=== PATIENT | female | born 1945 | race Caucasian/White ===

== ENCOUNTER 2020-05-04 14:04 | Inpatient (IN) | payer MEDICARE, OTHER, SELFPAY ==
[2020-05-04] VITALS (8 sets, daily range): BP systolic 101–164; BP diastolic 50–130; PULSE 68–74; RESP 22–26; TEMP 36.2–37.3; O2SAT 85–96; BMI 33.3; BMI 34.2
--- NOTE | 2020-05-04 14:18 | ED.DCSUM_ITS ---
History of Present Illness Chief Complaint: General Illness Informant: Patient Narrative: 75-year-old female presenting with generalized weakness. She states is been going on for 6 days. She complains of chills, change in taste, difficulty ambulating. Her daughter states that she fell this week and she had to come help her up in the garage. Patient herself thinks she has a UTI. She does not have a cough or cold symptoms. She has had fevers for the last 2 days with a T- max of 101. Patient denies chest pain, palpitations. She states she has always has a cough and does not think it is changed. Patient states that she is always short of breath due to heart failure and likely undiagnosed COPD. Past Medical History - Allergies and Home Meds Allergies/Adverse Reactions: Allergies cephalexin [From Keflex] Allergy (Verified 05/04/20 15:29) Hives amoxicillin [From Augmentin] Adverse Reaction (Verified 05/04/20 15:29) Diarrhea clavulanic acid [From Augmentin] Adverse Reaction (Verified 05/04/20 15:29) Diarrhea sulfamethoxazole [From Bactrim] Adverse Reaction (Verified 05/04/20 15:29) MY KIDNEY TOLD ME THAT WAS HARD ON THE KIDNEYS trimethoprim [From Bactrim] Adverse Reaction (Verified 05/04/20 15:29) MY KIDNEY TOLD ME THAT WAS HARD ON THE KIDNEYS Prior records reviewed: Yes Past Medical History: - - Hypertension, diabetes, CHF Lives: Spouse/ Significant Other Smoking Status: Former smoker Alcohol: None Drugs: None Review of Systems General: Reports: Chills, Fever, Malaise. Denies: Subjective Eyes: Reports: -. Denies: Visual changes - bilaterally, Diplopia ENT: Reports: - - Change in taste., -. Denies: Bilateral ear pain, Left ear pain, Right ear pain, Rhinorrhea, Sore throat Cardiovascular: Denies: Chest pain, Palpitations Respiratory: Reports: Dyspnea, Cough, Dyspnea on exertion. Denies: Sputum Gastrointestinal: Reports: - - Decreased appetite. Denies: Abdominal pain, Nausea, Vomiting, Diarrhea, Melena, Hematochezia Genitourinary: Reports: Dysuria. Denies: Hematuria, Frequency Musculoskeletal: Denies: Back pain, Extremity Pain Skin: Denies: Rash, Wounds Neurological: Denies: Headache, Weakness, Numbness Physical Exam Vital Signs/Narrative: Vital Signs Temp Pulse Resp BP Pulse Ox 05/04/20 14:05 97.2 F L 70 24 H 101/55 L 96 Inital Vital Signs reviewed: Yes General: Well nourished, Well developed, No Acute Distress Head: Normocephalic, Atraumatic Eyes: Perrl, EOMI ENT: Moist mucous membranes, No rhinorrhea Cardiovascular: Regular rate, Regular rhythm, No murmurs Respiratory: No distress, CTA bilaterally, - - Right lower lobe crackles.. Negative for: Wheezing Abdomen: Soft, Nontender, Nondistended, Normal bowel sounds Extremities: Nontender, No edema Skin: Normal color, No rash Neurological: Alert, Oriented x3, Cranial nerves II-XII grossly intact, Normal Strength, Normal Sensation Psychological: Normal affect, Normal Mood Diagnostic/Tx/Re-eval - Rhythm Strip Rhythm Strip: Sinus Rhythm Rate: 68 - EKG Initial EKG Interpretation: Sinus Rhythm, No Acute Injury Pattern - Medical Decision Making 75-year-old female presenting with chills, fever, cough, shortness of breath. She states that her cough and shortness of breath have not significantly changed. Given her symptoms I did test her for Covid?19. Lab work shows that she is dehydrated with a decreased GFR. She does not have a leukocytosis. Lactic acid is 1.5. Troponins negative. D-dimer is elevated however due to renal function I would not be able to CTA her. Discussed with hospitalist and we will empirically treat her with Eliquis and that she has symptoms of Covid?19 and is more likely to have PE. Patient will get inpatient duplexes tomorrow. Her urinalysis is negative for infection which was her initial thought for source. EKG is sinus rhythm without signs of ischemia as interpreted by myself. Chest x-ray is read by the radiologist shows minimal increased markings in the right lung base. Given the abnormal breath sounds and increased markings I do interpret this as infiltrate. Patient did test positive for Covid?19. She will be given 6 mg of Decadron prior to going to the floor. Impression: 1. Dehydration 2. Covid?19 3. Hypoxia ED Disposition - Plan for ED Patient: Disposition: Acute Care [facility]
--- NOTE | 2020-05-04 14:41 | EKG12_ITS ---
Test Reason : Blood Pressure : / mmHG Vent. Rate : 068 BPM Atrial Rate : 068 BPM P-R Int : 182 ms QRS Dur : 088 ms QT Int : 412 ms P-R-T Axes : 059 017 057 degrees QTc Int : 438 ms Normal sinus rhythm Nonspecific ST abnormality Abnormal ECG Confirmed by CURLY LARA, PILAR ([id number]), make up editor KAYLA LIN ([id number]) on 05/12/2020 10:11:10 AM Referred By: LICHA Confirmed By:VESNA RAWLS MD
[2020-05-04 15:23] LABS: Absolute Lymphocyte Count 0.88 X10^3/uL (0.83-4.51); Absolute Neutrophil Count 2.8 X10^3/uL (2.0-7.7); Basophil# 0.01 X10^3/uL; Basophil% 0.2 % (0-1); Eosinophil# 0.01 X10^3/uL; Eosinophils% 0.2 % (0-5); Hematocrit 32.2 % (37-47); Hemoglobin 10.6 g/dL (12.0-15.0); Lymphocyte # 0.88 X10^3/ul (4.0); Lymphocyte % 20.7 % (19-41); Mean Corp Hgb Conc 32.9 g/dL (32-36); Mean Corpuscular Hgb 33.4 pg (27.0-32.0); Mean Corpuscular Volume 101.6 fL (81-99); Mean Platelet Vol. 10.3 fl (6.2-12.0); Monocyte# 0.52 X10^3/uL; Monocyte% 12.2 % (0-10); NRBC Flagged by Analyzer 0 % (0-5); Neutrophil # 2.81 X10^3/uL (2.7-7.7); Platelet Count 239 K/mm3 (150-450); RBC Distribution Width CV 14.1 % (11.6-14.6); RBC Distribution Width SD 52.2 fl (35.1-43.9); Red Blood Count 3.17 M/mm3 (4.2-5.4); White Blood Count 4.3 K/mm3 (4.4-11.0)
--- NOTE | 2020-05-04 15:37 | RAD_ITS ---
STUDY: X-RAY CHEST REASON FOR EXAM: Female, 75 years old. PT C/O INCREASED WEAKNESS, DECREASED APPETITE X1 WEEK TECHNIQUE: Single AP portable view of the chest. COMPARISON: None. FINDINGS: EKG electrodes are seen. Hyperinflation. Minimal increased markings at the right lung base. There is no demonstrated pleural abnormality. Normal size heart. Normal mediastinum and rafy. Normal visualized pulmonary arteries. There is atherosclerotic calcification of the aortic arch with tortuosity. Normal visualized thoracic spine. Normal visualized ribs, clavicles, and shoulders. There is no demonstrated abnormality of the visualized soft tissue structures of the upper abdomen. RAD/Chest 1 View (Portable) IMPRESSION: Minimal increased markings at the right lung base. Electronically Signed: Ayan Johnson, at 16:02 EST , Service support ,
[2020-05-04 15:45] LABS: ALB/GLOB Ratio 0.7 RATIO (0.9-2.4); AST(SGOT) 42 U/L (15-37); Alanine Aminotransfer ALT/SGPT 20 U/L (13-56); Albumin, Serum 2.8 g/dL (3.2-5.0); Alkaline Phosphatase 48 U/L (45-117); Anion Gap 7 (5-15); BUN 48 mg/dL (7-18); BUN/Creat Ratio 28.9 RATIO (10-20); Calcium,Total 8.5 mg/dL (8.5-10.1); Chloride 99 mmol/L (98-107); Creatinine, Serum 1.66 mg/dL (0.55-1.02); EST Glomerular Filtration Rate 32 mL/min (>60); Est Glom Filt Rate - Afr Amer 39 mL/min (>60); Estimated Creatinine Clearance 26.75 ml/min; Glucose 100 mg/dL (74-106); Potassium 3.9 mmol/L (3.5-5.1); Protein, Total 6.8 g/dL (6.4-8.2); Sodium Level 133 mmol/L (136-145)
[2020-05-04 15:51] LABS: Lactic Acid 1.5 mmol/L (0.4-1.9)
[2020-05-04 15:53] LABS: Procalcitonin 0.13 ng/mL (0.00-0.09)
--- NOTE | 2020-05-04 17:12 | PCM.HP.STD ---
Problem List (1) Acute respiratory failure with hypoxia Status: Acute (2) COVID-19 Status: Acute (3) CKD (chronic kidney disease), stage III Status: Suspected Qualifiers: Chronic kidney disease stage 3 subtype: unspecified whether 3a or 3b Qualified Code(s): N18.30 - Chronic kidney disease, stage 3 unspecified (4) HTN (hypertension) Status: Chronic Qualifiers: Hypertension type: essential hypertension Qualified Code(s): I10 - Essential (primary) hypertension (5) HLD (hyperlipidemia) Status: Chronic Qualifiers: Hyperlipidemia type: unspecified Qualified Code(s): E78.5 - Hyperlipidemia, unspecified (6) Diabetes mellitus, type II Status: Chronic Qualifiers: Diabetes mellitus intermediate frame tender insulin use: without fpc use Diabetes mellitus complication status: with other specified complication Qualified Code(s): E11.69 - Type 2 diabetes mellitus with other specified complication (7) CHF (congestive heart failure) Status: Chronic Qualifiers: Heart failure type: unspecified Heart failure chronicity: chronic Qualified Code(s): I50.9 - Heart failure, unspecified (8) Gout Status: Chronic Qualifiers: Gout site: unspecified site Gout etiology: unspecified cause Chronicity: unspecified Qualified Code(s): M10.9 - Gout, unspecified History of Present Illness Date of Admission: 05/04/20 Chief Complaint: N/V/D, Fever, chills, alteration to sense of taste, body aches, dyspnea, cough. The patient is a 75 y/o F w/ PMHx: HTN, HLD, Gout, Obesity, CHF Unclear type, CKD unclear stage (suspect CKD stage III), Chronic anemia (unclear type), Former Tobacco use with suspected underlying COPD per family report, Diabetes mellitus type II who presents to the [facility] ED on 05/04/20 with history of 6 days of progressively worsening fever, chills, nausea, emesis, diarrhea, body aches, dyspnea and cough noting severe progressive weakness and falls. She also notes a decreased/altered sense of taste and complete lack of appetite. She notes her has remained well. She does have her daughter and son who have visited but have remained asymptomatic. Work-up in the ED included T 97.2, heart rate 69, BP 131/57, respiratory rate 26, initially 95% on room air however with transition to the bedside commode patient did desaturate to 85% with improvement to 94% on 2 L nasal cannula, continue to have accessory muscle usage and evidence of dyspnea during evaluation, CBC with WC 4.3, hemoglobin 10.6, platelet 239 with no shift, D-dimer 2.50, CMP with sodium 133, BUN/creatinine 48/1.66, lactic acid 1.5, AST/ALT 42/20, alk phos 48, troponin 0 0.038, procalcitonin 0.13, urinalysis not severe appearing with specific gravity 1.015, COVID-19 testing positive with PCR, chest x-ray with minimal increased markings right lung base, EKG with sinus rhythm with no acute evidence of ischemia. Past Medical History Past Medical History (Chronic Problems): Chronic Problems HTN (hypertension) (Chronic) HLD (hyperlipidemia) (Chronic) Diabetes mellitus, type II (Chronic) CHF (congestive heart failure) (Chronic) Gout (Chronic) Allergies cephalexin [From Keflex] Allergy (Verified 05/04/20 15:29) Hives amoxicillin [From Augmentin] Adverse Reaction (Verified 05/04/20 15:29) Diarrhea clavulanic acid [From Augmentin] Adverse Reaction (Verified 05/04/20 15:29) Diarrhea sulfamethoxazole [From Bactrim] Adverse Reaction (Verified 05/04/20 15:29) MY KIDNEY TOLD ME THAT WAS HARD ON THE KIDNEYS trimethoprim [From Bactrim] Adverse Reaction (Verified 05/04/20 15:29) MY KIDNEY TOLD ME THAT WAS HARD ON THE KIDNEYS Home Medications: Ambulatory Orders Medication Instructions Recorded Allopurinol 100 mg PO BID 05/04/20 Aspirin [Aspirin, Baby] 81 mg PO DAILY@0800 05/04/20 Carvedilol [Coreg] 25 mg PO BID 05/04/20 Clonidine HCl 0.3 mg PO DAILY 05/04/20 Cranberry Extract [Cranberry] 425 mg PO DAILY 05/04/20 Ergocalciferol (Vitamin D2) 50,000 unit PO UD 05/04/20 [Vitamin D2] Furosemide [Lasix] 40 mg PO MOTUWETHFR 05/04/20 Glipizide 5 mg PO BID 05/04/20 Hydrochlorothiazide [Hctz] 25 mg PO DAILY 05/04/20 Isosorbide Mononitrate [Imdur] 30 mg PO BID 05/04/20 [place]-3 Fatty Acids/Fish Oil 2 ea PO BID 05/04/20 [[place] 3 1,000 mg Softgel] Polyethylene Glycol 3350 [Miralax] 17 gm PO DAILY 05/04/20 Simvastatin [Zocor] 20 mg PO DAILY 05/04/20 Valsartan [Diovan] 160 mg PO DAILY 05/04/20 Surgical History: - - Hysterectomy, right total knee replacement, surgery for skin cancer on her head. 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 Tobacco Use: Non-smoker Alcohol: None Drugs: None - *Family History Maternal History Items: Heart Disease - Mother with a history of heart disease, CHF, hypertension, hyperlipidemia, diabetes. Paternal History Items: Cancer - Father with history of tobacco use and concurrent lung cancer history., - - Patient notes her father had a history of significant alcoholism. Review of Systems Constitutional: Reports: Anorexia, Chills, Fever, Malaise, Weakness, Fatigue. Denies: Weight Change HEENT: Reports: - - Alteration to sense of taste.. Denies: Head Aches, Sinus Congestion, Sinus Drainage Cardiovascular: Denies: Chest Pain, Chest Pressure, Chest Tightness, Light Headedness, Palpitations Respiratory: Reports: Cough, Shortness of Breath, Shortness of breath at rest, Shortness of breath upon exertion. Denies: Sputum production, Wheezing Gastrointestinal: Reports: Diarrhea, Nausea, Vomiting. Denies: Abdominal Pain Genitourinary: Denies: Dysuria Musculoskeletal: Reports: Back Pain, Joint Pain, Muscle pain. Denies: Joint Tenderness Skin: Denies: Rash, Wounds Neurological: Denies: Numbness, Tingling, Focal weakness Psychiatric: Denies: Anxiety, Depression, Homicidal Ideations, Suicidal Ideations Hematologic/ Lymphatic: Reports: Anemia, Easy Bruising, Easy Bleeding VTE Information - Inpt Only VTE Present on Admission: No VTE Mechan Device Prophylaxis: SCD's VTE Pharm Prophylaxis ordered?: Yes Subjective: Seated upright in the ED bed, fatigued and ill-appearing, increased respiratory rate and some accessory muscle usage, evident distress. Objective: Physical Examination: General: awake, alert, oriented x 3 and cooperative, seated upright in the ED bed, fatigued and ill-appearing, increased respiratory rate and some accessory muscle usage, evident distress. Skin: normal color, turgor, no icterus, cyanosis. HEENT: AT/NC, EOMI, PERRLA, dry MM, no carotid bruits or JVD noted. Lungs: Diminished breath sounds, greater bases, increased respiratory rate and accessory muscle usage noted, evident distress, no obvious rales, rhonchi or wheezing but does also have conversational dyspnea. Heart: Regular rate and rhythm; no gallop, rub audible. Abdomen: soft, obese, NTTP, ND, hyperactive BS, no HSM. Extremities: no cyanosis or clubbing, minimal bilateral lower extremity nonpitting edema to the ankles. Neurological: patient awake, alert, oriented as noted, hard of hearing; cognitive function appears baseline intact despite acute presentation; pupils equally reactive to light and accomodation; cranial nerves II-XII grossly normal, moving all 4 extremities, no focal deficits, strength severely globally decreased secondary to acute presentation. Psychiatric: affect appears ill, fatigued, evident respiratory distress, no acute evidence of depressive or anxiety feelings. - Physical Exam Vitals/I&O's: Vital Signs Temp Pulse Resp BP Pulse Ox 97.2 F L 69 26 H 131/57 H 95 05/04/20 15:19 05/04/20 15:19 05/04/20 15:19 05/04/20 15:19 05/04/20 15:19 Oxygen Delivery Method Room Air Weight: 200 lb Body Mass Index (BMI) 33.3 Laboratory Results 05/04/20 14:55: COVID-19 (JAKE) Pending 05/04/20 15:14: WBC 4.3 L, RBC 3.17 L, Hgb 10.6 L, Hct 32.2 L, MCV 101.6 H, MCH 33.4 H, MCHC 32.9, RDW Std Deviation 52.2 H, RDW Coeff of Madalyn 14.1, Plt Count 239, MPV 10.3, Immature Gran % (Auto) 0.700, Neut % (Auto) 66.0, Lymph % (Auto) 20.7, [place] % (Auto) 12.2 H, Eos % (Auto) 0.2, Baso % (Auto) 0.2, Absolute Neuts (auto) 2.8, Absolute Lymphs (auto) 0.88, Nucleated RBC % 0 05/04/20 15:14: D-Dimer Quant (PE/DVT) 2.50 H* 05/04/20 15:14: Sodium 133 L, Potassium 3.9, Chloride 99, Carbon Dioxide 27.0, Anion Gap 7, BUN 48 H, Creatinine 1.66 H, Estim Creat Clear Calc 26.75, Est GFR (MDRD) Af Amer 39 L, Est GFR (MDRD) Non-Af 32 L, BUN/Creatinine Ratio 28.9 H, Glucose 100, Calcium 8.5, Total Bilirubin 0.50, AST 42 H, ALT 20, Alkaline Phosphatase 48, Troponin I 0.038, Total Protein 6.8, Albumin 2.8 L, Globulin 4.0, Albumin/Globulin Ratio 0.7 L 05/04/20 15:14: Lactic Acid 1.5 05/04/20 15:14: Procalcitonin 0.13 H Assessment/Plan All Active Problems Acute respiratory failure with hypoxia (Acute) COVID-19 (Acute) The patient is a 75 y/o F w/ PMHx: HTN, HLD, Gout, Obesity, CHF Unclear type, CKD unclear stage (suspect CKD stage III), Chronic anemia (unclear type), Former Tobacco use with suspected underlying COPD per family report, Diabetes mellitus type II who presents to the [facility] ED on 05/04/20 with history of 6 days of progressively worsening fever, chills, nausea, emesis, diarrhea, body aches, dyspnea and cough noting severe progressive weakness and falls. She also notes a decreased/altered sense of taste and complete lack of appetite. 1. Acute Hypoxic Respiratory Failure secondary to Acute Viral Syndrome, COVID-19: Will admit to the COVID unit, will maintain on oxygen with wean as tolerated to room air although do suspect patient likely to worsen and is amenable to BiPAP and high flow at this point with deferral of any intubation or CPR, PRN albuterol, HOB, IS parameters w/ pending sputum cultures and urine antigens, will obtain procalcitonin, CRP, CPK, Ferritin, LDH, trend labs per worsening status protocol Covid panel, request infectious disease consultation, will obtain type and screen, not candidate for remdesivir given renal disease likely, to new IV Decadron x10 doses, continue supportive care including q 2 hour turning including prone given no prone bed availability and judicious hydration, closely monitor for worsening status for ARDS and multiorgan failure. Given patient elevated D-dimer and renal disease will obtain duplex ultrasound of the bilateral lower extremities in AM. In the interim will maintain on therapeutic anticoagulation. 2. Leukopenia, suspect secondary to #1: Admission WBC 4.3, do suspect likely secondary to #1, continue to trend CBC. 3. Chronic CHF, unclear type, appears compensated: Given patient presentation very judiciously hydrating especially given Covid status and underlying CHF, continue aspirin, statin, Coreg, valsartan, Lasix therapy. Did discuss with patient that given presentation #1 she may require additional Lasix regimen. 4. Hypertension: Continue home regimen including Coreg, Lasix, hydrochlorothiazide, isosorbide, valsartan, PRN hydralazine. 5. Hyperlipidemia: Continue home statin regimen. 6. Chronic anemia, currently macrocytic: Admission hemoglobin 10.6, MCV 101.6, notes longstanding history of anemia, cannot give history as of what type, will trend CBC. 7. Chronic Kidney Disease suspect stage III: Admission BUN/Cr 48/1.66 with creatinine clearance currently 26.75 with unclear baseline but do suspect some component of mild dehydration given presentation with recent poor oral intake, likely suspect stage III, trend CMP. 8. Suspect underlying chronic COPD: We will continue to closely monitor, complicates #1 presentation, as needed albuterol if necessary via inhaler, may consider adding scheduled inhaler, encourage head of bed and I-S. 9. Former tobacco use: Encourage continued tobacco cessation. 10. Diabetes mellitus type II: Hold oral home regimen, ADA diet, accu checks w/ ISS, do expect blood sugar elevations given steroid usage as noted #1. 11. DVT prophylaxis: SCDs, Eliquis. 12. CODE status: Patient DERIC is her as primary and her son Tom Abbott as secondary and living will is currently in place. Discussed CODE status at length including difference between FULL code, DNR-CCA and DNR-CC status. Following discussions about the differences in these status, requested DNR-CCA, no intubation status. She is amenable to BIPAP and high flow if needed. Advanced Care Planning Face to Face Time: 16 minutes. Inpatient E&M: 90331 Init Hosp L3 Procedures: 61891 Advncd Care Plan 30 Min
[2020-05-04 17:16] LABS: Bacteria 0 SEEN /hpf (None Seen); Mucous, Urine 0 SEEN /hpf (<or=2+); Red Blood Cells-Urine 0 SEEN /hpf (0-5); Squamous Epithelial Cells - UA 0 SEEN /hpf (5-10); White Blood Cells 0 SEEN /hpf (0-5)
[2020-05-04 17:18] LABS: Color, Urine Yellow (Yellow); Glucose, Dipstick Normal (Normal); Ketone-Dipstick Negative (Negative); Leukocyte Esterase-Dipstick Negative /ul (Negative); Nitrite-Dipstick Negative (Negative); Occult Blood-Urine 10 /ul (Negative); Protein-Dipstick Negative (Negative); Specific Gravity, Urine 1.015 (1.002-1.030); Urine Bilirubin Dipstick Negative (Negative); Urine Clarity Clear (Clear); Urine Urobilinogen Normal (Normal)
--- NOTE | 2020-05-04 17:20 | NURSING ---
MS2 COVID HYPOXIA WHITE
[2020-05-04] MEDS: dexAMETHasone 10 MG/ML Vial 6 MG IV (17:30)
[2020-05-04] MEDS: 0.9% Normal Saline 1,000 ML 100 ML IV (20:43)
[2020-05-04 21:01] LABS: Ferritin 913 ng/mL (8-252); LDH 303 U/L (84-246); Magnesium 1.6 mg/dL (1.6-2.6)
[2020-05-04] MEDS: Carvedilol 25 MG Tablet PO (21:02)
[2020-05-04] MEDS: Isosorbide Mononitrate 30 MG Tablet PO (21:02)
[2020-05-04] MEDS: Atorvastatin Calcium 10 MG Tablet PO (21:02)
[2020-05-04] MEDS: APIXABAN 5 MG TABLET 10 MG PO (21:02)
[2020-05-04] MEDS: Allopurinol 100 MG Tablet PO (21:02)
--- NOTE | 2020-05-04 23:00 | PCS.PANDOC ---
PANDEMIC DOCUMENTATION INITIATED: Date: 05/04/20 Time: 1854
[2020-05-05] VITALS (15 sets, daily range): BP systolic 111–163; BP diastolic 57–82; PULSE 51–78; RESP 18–22; TEMP 36.6–37.1; O2SAT 9–98
[2020-05-05 03:16] LABS: Bedside Glucose 131 mg/dL (70-110)
[2020-05-05] MEDS: Insulin Lispro 100 UNIT/ML INSULN.PEN SC ×4 (06:17→20:17)
[2020-05-05 06:46] LABS: Absolute Lymphocyte Count 0.65 X10^3/uL (0.83-4.51); Absolute Neutrophil Count 1.3 X10^3/uL (2.0-7.7); Hematocrit 31.9 % (37-47); Hemoglobin 10.4 g/dL (12.0-15.0); Lymphocyte # 0.65 X10^3/ul (4.0); Lymphocyte % 31.7 % (19-41); Mean Corp Hgb Conc 32.6 g/dL (32-36); Mean Corpuscular Volume 101.3 fL (81-99); Mean Platelet Vol. 10.2 fl (6.2-12.0); Monocyte# 0.13 X10^3/uL; Monocyte% 6.3 % (0-10); NRBC Flagged by Analyzer 0 % (0-5); Neutrophil # 1.26 X10^3/uL (2.7-7.7); Neutrophil % 61.5 % (47-70); Platelet Count 259 K/mm3 (150-450); RBC Distribution Width SD 51.8 fl (35.1-43.9); Red Blood Count 3.15 M/mm3 (4.2-5.4); White Blood Count 2.1 K/mm3 (4.4-11.0)
[2020-05-05 06:57] LABS: D-Dimer Quantitative (DVT/PE) 2.45 FEU/ug/m (0.27-0.49)
[2020-05-05 07:15] LABS: ALB/GLOB Ratio 0.6 RATIO (0.9-2.4); AST(SGOT) 43 U/L (15-37); Alanine Aminotransfer ALT/SGPT 21 U/L (13-56); Albumin, Serum 2.6 g/dL (3.2-5.0); Alkaline Phosphatase 47 U/L (45-117); Anion Gap 9 (5-15); BUN 41 mg/dL (7-18); BUN/Creat Ratio 31.8 RATIO (10-20); Calcium,Total 8.7 mg/dL (8.5-10.1); Chloride 103 mmol/L (98-107); Creatinine, Serum 1.29 mg/dL (0.55-1.02); EST Glomerular Filtration Rate 43 mL/min (>60); Est Glom Filt Rate - Afr Amer 52 mL/min (>60); Estimated Creatinine Clearance 34.43 ml/min; Ferritin 946 ng/mL (8-252); Glucose 159 mg/dL (74-106); Potassium 3.9 mmol/L (3.5-5.1); Protein, Total 6.6 g/dL (6.4-8.2); Sodium Level 136 mmol/L (136-145)
[2020-05-05 07:25] LABS: Bedside Glucose 162 mg/dL (70-110)
[2020-05-05 07:45] LABS: Procalcitonin 0.14 ng/mL (0.00-0.09)
[2020-05-05] MEDS: Furosemide 40 MG Tablet PO (09:02)
[2020-05-05] MEDS: Carvedilol 25 MG Tablet PO ×2 (09:02→19:59)
[2020-05-05] MEDS: hydroCHLOROthiazide 25 MG Tablet PO (09:02)
[2020-05-05] MEDS: Allopurinol 100 MG Tablet PO ×2 (09:02→19:59)
[2020-05-05] MEDS: Isosorbide Mononitrate 30 MG Tablet PO ×2 (09:02→19:59)
[2020-05-05] MEDS: APIXABAN 5 MG TABLET 10 MG PO (09:02)
[2020-05-05] MEDS: Aspirin 81 MG TAB.CHEW PO (09:02)
[2020-05-05] MEDS: cloNIDine HCl 0.1 MG Tablet 0.3 MG PO (09:02)
[2020-05-05] MEDS: Losartan Potassium 50 MG Tablet PO (09:02)
[2020-05-05] MEDS: 0.9% Saline Lock 10 ML Syringe IV ×2 (09:03→19:58)
[2020-05-05] MEDS: dexAMETHasone 10 MG/ML Vial 6 MG IV (09:03)
--- NOTE | 2020-05-05 10:35 | PN_ITS ---
Patient Problems: Active and Suspected Problems Acute respiratory failure with hypoxia (Acute) COVID-19 (Acute) CKD (chronic kidney disease), stage III (Suspected) Subjective: Patient seen and examined. She was admitted with a complaint of fever, chills, she did taste as well as body aches, dyspnea and cough. Patient also had p rogressive weakness and falls. She tested positive for Covid and is being managed for acute hypoxic respiratory insufficiency due to COVID-19 infection. Patient has no complaints this morning think she is feeling better. She is on 2 L of oxygen. Review of systems otherwise negative. Blood pressure is a bit elevated this morning at 163/82 though she states she had just taken her blood pressure medication. Has otherwise remained hemodynamically stable. Vitals/I&O's: Vital Signs Temp Pulse Resp BP Pulse Ox 98.2 F 66 18 163/82 H 95 05/05/20 09:06 05/05/20 09:06 05/05/20 09:06 05/05/20 09:06 05/05/20 09:06 Oxygen Flow Rate (L/min) 2 Oxygen Delivery Method Nasal Cannula Weight: 200 lb 6.403 oz Body Mass Index (BMI) 34.2 Intake and Output for Last 24 Hours 05/03/20 05/04/20 05/05/20 23:59 23:59 23:59 Intake Total 948.33 / 948.33 Output Total 1400 / 1400 Balance -451.67 / -451.67 General: Alert, Oriented x3, Cooperative, No apparent distress HEENT: Atraumatic, PERRLA, EOMI, Normocephalic Oral: Dry Mucosa Neck: Supple, No JVD, Negative Carotid Bruits Lungs: - - diminished breath sounds bibasally, on 2L of oxygen by nasal canula Cardiovascular: Regular rate, Regular Rhythm, Normal S1, Normal S2, No murmurs Abdomen: Bowel Sounds Present, Soft, Non Tender, Non-Distended, No Hepato- splenomegaly Extremities: No edema, Capillary Refill Less than 3 Seconds Skin: No rashes, No breakdown Musculoskeletal: No Tenderness to Palpation of Joints or Extremities Lymphatic: No Cervical, Supraclavicular, or Inguinal Adenopathy Neurological: Cranial nerves II-XII grossly intact, Neuro grossly intact, Motor Exam 5/5 strength throughout Psych/Mental Status: Normal Affect, Appropriate, Alert and oriented to time, place, person, mood and affect Microbiology Past 72 Hours 05/04/20 17:10 Urine, Random Streptococcus pneumoniae Antigen (M - Final 05/04/20 17:10 Urine, Random Legionella Antigen - Final Laboratory Results 05/04/20 14:55: COVID-19 (JAKE) Detected 05/04/20 15:14: WBC 4.3 L, RBC 3.17 L, Hgb 10.6 L, Hct 32.2 L, MCV 101.6 H, MCH 33.4 H, MCHC 32.9, RDW Std Deviation 52.2 H, RDW Coeff of Madalyn 14.1, Plt Count 239, MPV 10.3, Immature Gran % (Auto) 0.700, Neut % (Auto) 66.0, Lymph % (Auto) 20.7, [place] % (Auto) 12.2 H, Eos % (Auto) 0.2, Baso % (Auto) 0.2, Absolute Neuts (auto) 2.8, Absolute Lymphs (auto) 0.88, Nucleated RBC % 0 05/04/20 15:14: D-Dimer Quant (PE/DVT) 2.50 H* 05/04/20 15:14: Sodium 133 L, Potassium 3.9, Chloride 99, Carbon Dioxide 27.0, Anion Gap 7, BUN 48 H, Creatinine 1.66 H, Estim Creat Clear Calc 26.75, Est GFR (MDRD) Af Amer 39 L, Est GFR (MDRD) Non-Af 32 L, BUN/Creatinine Ratio 28.9 H, Glucose 100, Calcium 8.5, Total Bilirubin 0.50, AST 42 H, ALT 20, Alkaline Phosphatase 48, Troponin I 0.038, Total Protein 6.8, Albumin 2.8 L, Globulin 4.0, Albumin/Globulin Ratio 0.7 L 05/04/20 15:14: Lactic Acid 1.5 05/04/20 15:14: Procalcitonin 0.13 H 05/04/20 15:14: Magnesium 1.6, Ferritin 913 H, Lactate Dehydrogenase 303 H, C- React Prot Ext Range 72.60 H 05/04/20 17:10: Urine Color Yellow, Urine Clarity Clear, Urine pH 5.0, Ur Specific [place] 1.015, Urine Protein Negative, Urine Glucose (UA) Normal, Urine Ketones Negative, Urine Occult Blood 10 H, Urine Nitrite Negative, Urine Bilirubin Negative, Urine Urobilinogen Normal, Ur Leukocyte Esterase Negative, Urine RBC 0 SEEN, Urine WBC 0 SEEN, Ur Squamous Epith Cells 0 SEEN, Urine Bact eria 0 SEEN, Urine Mucus 0 SEEN 05/04/20 21:00: Blood Type A POSITIVE, Antibody Screen NEGATIVE 05/04/20 21:01: POC Glucose 131 H 05/05/20 06:11: POC Glucose 162 H 05/05/20 06:35: WBC 2.1 L, RBC 3.15 L, Hgb 10.4 L, Hct 31.9 L, MCV 101.3 H, MCH 33.0 H, MCHC 32.6, RDW Std Deviation 51.8 H, RDW Coeff of Madalyn 14.0, Plt Count 259, MPV 10.2, Immature Gran % (Auto) 0.500, Neut % (Auto) 61.5, Lymph % (Auto) 31.7, [place] % (Auto) 6.3, Eos % (Auto) 0.0, Baso % (Auto) 0.0, Absolute Neuts (auto) 1.3 L, Absolute Lymphs (auto) 0.65 L, Nucleated RBC % 0 05/05/20 06:35: Sodium 136, Potassium 3.9, Chloride 103, Carbon Dioxide 24.0, Anion Gap 9, BUN 41 H, Creatinine 1.29 H, Estim Creat Clear Calc 34.43, Est GFR (MDRD) Af Amer 52 L, Est GFR (MDRD) Non-Af 43 L, BUN/Creatinine Ratio 31.8 H, Glucose 159 H, Calcium 8.7, Ferritin 946 H, Total Bilirubin 0.40, AST 43 H, ALT 21, Alkaline Phosphatase 47, C-React Prot Ext Range 93.20 H, Total Protein 6.6, Albumin 2.6 L, Globulin 4.0, Albumin/Globulin Ratio 0.6 L 05/05/20 06:35: D-Dimer Quant (PE/DVT) 2.45 H* 05/05/20 06:35: Procalcitonin 0.14 H Diagnostic Data Chest X-Ray 05/04/20 15:37 IMPRESSION: Minimal increased markings at the right lung base. Electronically Signed: Ayan Johnson, at 16:02 EST , Service support , Current Medications Acetaminophen (Acetaminophen 325 Mg Tablet) 650 mg PO Q6H PRN PRN PRN Reason: Pain Score 1-10/Temp > 100.7 F Al Hydroxide/Mg Hydroxide (Mag Hydrox/Al Hydrox/Simeth 30 Ml Udc) 30 ml PO Q6H PRN PRN PRN Reason: Gastric Burning Albuterol Sulfate (Albuterol Sulfate 8 Gm Inhaler (60 Puffs)) 4 - 8 puff INHALATION Q4H PRN PRN PRN Reason: Dyspnea, wheezing Allopurinol (Allopurinol 100 Mg Tablet) 100 mg PO BID [facility] Last Admin: 05/05/20 09:02 Dose: 100 mg Documented by: Apixaban (Apixaban 5 Mg Tablet) 10 mg PO BID [facility]; Taper Stop: 11/07/20 21:59 Last Admin: 05/05/20 09:02 Dose: 10 mg Documented by: Aspirin (Aspirin 81 Mg Tab.Chew) 81 mg PO DAILY [facility] Last Admin: 05/05/20 09:02 Dose: 81 mg Documented by: Atorvastatin Calcium (Atorvastatin Calcium 10 Mg Tablet) 10 mg PO QHS [facility] Last Admin: 05/04/20 21:02 Dose: 10 mg Documented by: Carvedilol (Carvedilol 25 Mg Tablet) 25 mg PO BID [facility] Last Admin: 05/05/20 09:02 Dose: 25 mg Documented by: Clonidine (Clonidine Hcl 0.1 Mg Tablet) 0.3 mg PO DAILY [facility] Last Admin: 05/05/20 09:02 Dose: 0.3 mg Documented by: Dexamethasone Sodium Phosphate (Dexamethasone 10 Mg/Ml Vial) 6 mg IV DAILY [facility] Stop: 05/14/20 10:01 Last Admin: 05/05/20 09:03 Dose: 6 mg Documented by: Dextrose (Dextrose 50%-Water 25 Gm/50 Ml Disp.Syrin) 0 gm IV X1 PRN; Protocol PRN Reason: Hypoglycemia Furosemide (Furosemide 40 Mg Tablet) 40 mg PO MOTUWETHFR [facility] Last Admin: 05/05/20 09:02 Dose: 40 mg Documented by: Glucagon (Glucagon 1 Mg/Ml Syringe) 1 mg IM .X1 PRN PRN Reason: Hypoglycemia Guaifenesin (Guaifenesin 10 Ml Udc (200mg/10ml)) 20 ml PO Q4H PRN PRN PRN Reason: COUGH Hydralazine HCl (Hydralazine 20 Mg/Ml Vial) 10 mg IV Q4H PRN PRN PRN Reason: SBP > 160 Hydrochlorothiazide (Hydrochlorothiazide 25 Mg Tablet) 25 mg PO DAILY [facility] Last Admin: 05/05/20 09:02 Dose: 25 mg Documented by: Insulin Human Lispro (Insulin Lispro 100 Unit/Ml Insuln.Pen) 0 unit SC [facility]; Protocol Last Admin: 05/05/20 06:17 Dose: 1 units Documented by: Isosorbide Mononitrate (Isosorbide Mononitrate 30 Mg Tablet) 30 mg PO BID [facility] Last Admin: 05/05/20 09:02 Dose: 30 mg Documented by: Losartan Potassium (Losartan Potassium 50 Mg Tablet) 50 mg PO DAILY [facility] Last Admin: 05/05/20 09:02 Dose: 50 mg Documented by: Melatonin (Melatonin 3 Mg Tablet) 3 mg PO QHS PRN PRN PRN Reason: INSOMNIA Morphine Sulfate (Morphine 2 Mg/Ml Syringe) 2 mg IV Q3H PRN PRN PRN Reason: Pain Score 6-10 Nitroglycerin (Nitroglycerin (Inpatient Use) 0.4 Mg Tab.Subl) 0.4 mg SUBLINGUAL Q5M PRN PRN Reason: CARDIAC/CHEST PAIN Ondansetron HCl (Ondansetron 4 Mg/2 Ml Vial) 4 mg IV Q8H PRN PRN PRN Reason: NAUSEA/VOMITING Oxycodone HCl (Oxycodone 5 Mg Tablet) 5 mg PO Q4H PRN PRN PRN Reason: Pain Score 4-5 Prochlorperazine Edisylate (Prochlorperazine 10 Mg/2 Ml Vial) 5 mg IV Q4H PRN PRN PRN Reason: Breakthrough nausea/vomiting Sodium Chloride (0.9% Saline Lock 10 Ml Syringe) 10 - 40 ml IV UD PRN PRN Reason: SALINE FLUSH Last Admin: 05/05/20 09:03 Dose: 10 ml Documented by: Throat Lozenges (Benzocaine/Menthol 1 Lozenge) 1 lozenge MUCOUS MEM Q2H PRN PRN PRN Reason: SORE THROAT STROKE Vital Signs/Narrative: Vital Signs Temp Pulse Resp BP Pulse Ox 05/05/20 09:06 98.2 F 66 18 163/82 H 95 05/05/20 08:31 66 Medical Necessity - Tobacco Use Smoking Status: Former smoker Tobacco Use: Cigarettes Assessment/Plan All Active Problems Acute respiratory failure with hypoxia (Acute) COVID-19 (Acute) #Acute hypoxic respiratory insufficiency due to COVID 19 infection * Currently on 2 L of oxygen. * Titrate oxygen to maintain saturation above 90%. * On dexamethasone. ID consulted. * No started on remdesivir on account of kidney impairment. * On Eliquis for anticoagulation no elevated D-dimer. * #COVID 19 infection * As above * # Hypertension * BP a bit elevated this mornign, with systolic in the 160s * on carvedilol, clonidine and HCTZ, as well as losartan. * #Hyperlipidemia * on statin * #Chronic HF * Not in exacerbation. On Lasix 40 mg daily. * #CKD stage 3 * Creatinine is 1.29. Will monitor * #Type 2 diabetes mellitus:glipizide on hold. ISS. Sera GREY. DVT prophylaxis; eliquis Inpatient E&M: 19960 Subs Hosp L2
[2020-05-05 12:06] LABS: Bedside Glucose 194 mg/dL (70-110)
[2020-05-05 12:35] LABS: BNP,B-Type NATRIURETIC PEPTIDE 140.5 pg/mL (0-100)
--- NOTE | 2020-05-05 12:40 | CASEMGMT ---
RN CM NOTE: Attempted to complete RN CM initial assessment. Pt out of room at this time. RN CM to attempt to complete at a later time. Sabrina BSN RN CM
--- NOTE | 2020-05-05 12:44 | CT_ITS ---
STUDY: CTA CHEST REASON FOR EXAM: Female, 75 years old. Fever, chills, body aches, sob, cough. COVID + RADIATION DOSAGE (If Supplied By Facility): CTDIvol = ( 14.64 ) mGy, DLP = ( 458.02 ) mGycm TECHNIQUE: The examination was performed with the intravenous administration of IV 100mL Isovue-370. Post-processing of the angiographic images was performed, with multiplanar reformation and 3D reconstruction. Individualized dose optimization techniques were used for this CT. COMPARISON: None. FINDINGS: Normal enhancement of the main pulmonary artery and right and left pulmonary arteries. Normal enhancement of the bilateral peripheral pulmonary arteries. There is no demonstrated pulmonary embolism. There is atherosclerotic calcification of the aortic arch and descending thoracic aorta with tortuosity. Mural thrombus is seen in the descending thoracic aorta. There is no demonstrated aortic dissection. Normal heart and pericardium. There are calcifications of the coronary arteries. There are visualized mediastinal lymph nodes, which are within normal size limits, and with normal morphology. Normal hilar regions. Normal visualized trachea and bronchi. The lungs are well expanded. Patchy areas of the groundglass appearance/infiltrate seen in the peripheral aspect of the both upper lobes. Similar appearing infiltrate seen in the lateral aspect of the right lower lobe. Findings are suggestive of Covid19 infection. Normal pleura. Normal chest wall structures. There are degenerative changes of thoracic spine. Normal visualized upper abdomen. CT/CTA Chest W/WO Contrast IMPRESSION: Patchy areas of groundglass appearance as described. Electronically Signed: Ayan Johnson, at 13:29 EST , Service support ,
--- NOTE | 2020-05-05 15:05 | CASEMGMT ---
RN [place] [employer] CM placed call to room for initial transition planning/care coordination assessment. DIOGO COLE introduced self and role at [facility]. Pt voices understanding and consents to assessment at this time. Pt is A/O at this time and answers all questions appropriately. Care providers, pharmacy, and demographics verified/updated at this time. PCP: dr Blake Johnson Specialists: Dr Lalito Daniel--supervisor plasma [facility] [place]. Saw Dr Alba (nephrology) in the past but pt states, She released me Preferred Pharmacy: [facility] retail Insurance: MCR, [employer] Prescription Benefit: Yes Living Will/HPOA: has both LW and Healthcare POA--she thinks it is either her or son, Tom, but is not sure LNOK: , Blake Living Arrangements: Lives w/her , Blake, in one-story home w/2 steps to enter w/handrails on one side. Independent w/ADL's. /pt share home mgmt tasks. They have separate bedrooms and are able to self isolate. They do share a bathroom and instructed to disinfect after using. 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 or daughter will take her home @ discharge. DME: has the following DME: Cane, walker, shower chair, BSC, grab bars, glucometer. No home O2. Pt states no need for further DME at this time. HHC/SNF: No history of either. may be interested in HHC and does not want to make that decision at this time, stating, I just can't think about that right now. DIOGO COLE told pt that this can be discussed again tomorrow and she states she prefers that. Pt wishes to return home and states has no concerns with going home at time of discharge. CM to follow for home oxygen needs and any further discharge planning/needs. Pt voices no further concerns/needs at this time. Advised pt to ask for CM if any further questions/concerns/needs arise. Voices understanding. PLAN: Home w/. May qualify for Home O2 @ discharge. Pt also may want HHC @ d/c DIOGO COLE to follow Sabrina LINARES RN, CM
--- NOTE | 2020-05-05 15:51 | CON.PCM_ITS ---
Problem List (1) COVID-19 Status: Acute Reason for Consult: covid Consulted by: Dr. Og History of Present Illness: The patient is a 75 year old F presented with sx starting 04/28 with diarrhea, cough, weakness, fatigue, loss of appetite. No change in taste/smell. Lives with who is getting tested. Came to ED with NOELLE, hypoxia, not feeling well. Given dex, eliquis. Feeling a little better today. Full ROS performed and neg except as noted above. - Medical History Past Medical History (Chronic Problems): Chronic Problems HTN (hypertension) (Chronic) HLD (hyperlipidemia) (Chronic) Diabetes mellitus, type II (Chronic) CHF (congestive heart failure) (Chronic) Gout (Chronic) Allergies/Adverse Reactions: Allergies cephalexin [From Keflex] Allergy (Verified 05/04/20 15:29) Hives amoxicillin [From Augmentin] Adverse Reaction (Verified 05/04/20 15:29) Diarrhea clavulanic acid [From Augmentin] Adverse Reaction (Verified 05/04/20 15:29) Diarrhea sulfamethoxazole [From Bactrim] Adverse Reaction (Verified 05/04/20 15:29) MY KIDNEY TOLD ME THAT WAS HARD ON THE KIDNEYS trimethoprim [From Bactrim] Adverse Reaction (Verified 05/04/20 15:29) MY KIDNEY TOLD ME THAT WAS HARD ON THE KIDNEYS Home Medications: Ambulatory Orders Medication Instructions Recorded Allopurinol 100 mg PO BID 05/04/20 Aspirin [Aspirin, Baby] 81 mg PO DAILY@0800 05/04/20 Carvedilol [Coreg] 25 mg PO BID 05/04/20 Clonidine HCl 0.3 mg PO DAILY 05/04/20 Cranberry Extract [Cranberry] 425 mg PO DAILY 05/04/20 Ergocalciferol (Vitamin D2) 50,000 unit PO UD 05/04/20 [Vitamin D2] Furosemide [Lasix] 40 mg PO MOTUWETHFR 05/04/20 Glipizide 5 mg PO BID 05/04/20 Hydrochlorothiazide [Hctz] 25 mg PO DAILY 05/04/20 Isosorbide Mononitrate [Imdur] 30 mg PO BID 05/04/20 [place]-3 Fatty Acids/Fish Oil 2 ea PO BID 05/04/20 [[place] 3 1,000 mg Softgel] Polyethylene Glycol 3350 [Miralax] 17 gm PO DAILY 05/04/20 Simvastatin [Zocor] 20 mg PO DAILY 05/04/20 Valsartan [Diovan] 160 mg PO DAILY 05/04/20 - Social History SMOKING STATUS:: Former smoker Vital Signs Temp Pulse Resp BP Pulse Ox 97.8 F 70 18 111/68 94 05/05/20 14:00 05/05/20 14:00 05/05/20 14:00 05/05/20 14:00 05/05/20 14:42 Oxygen Flow Rate (L/min) 2 Oxygen Delivery Method Nasal Cannula Weight: 90.9 kg Body Mass Index (BMI) 34.2 Microbiology Past 72 Hours 05/04/20 14:55 Respiratory Panel (PCR) - Final Mucosa - Nasopharyngeal 05/04/20 17:10 Streptococcus pneumoniae Antigen (M - Final Urine, Random 05/04/20 17:10 Legionella Antigen - Final Urine, Random Laboratory Tests Past 24 Hrs 05/04/20 05/04/20 05/04/20 14:55 15:14 15:14 WBC RBC Hgb Hct MCV MCH MCHC RDW Std Deviation RDW Coeff of Madalyn Plt Count MPV Immature Gran % (Auto) Neut % (Auto) Lymph % (Auto) [place] % (Auto) Eos % (Auto) Baso % (Auto) Absolute Neuts (auto) Absolute Lymphs (auto) Nucleated RBC % D-Dimer Quant (PE/DVT) 2.50 H* Sodium Potassium Chloride Carbon Dioxide Anion Gap BUN Creatinine Estim Creat Clear Calc Est GFR (MDRD) Af Amer Est GFR (MDRD) Non-Af BUN/Creatinine Ratio Glucose Lactic Acid 1.5 Calcium Magnesium Ferritin Total Bilirubin AST ALT Alkaline Phosphatase Lactate Dehydrogenase C-React Prot Ext Range B-Natriuretic Peptide Total Protein Albumin Globulin Albumin/Globulin Ratio Procalcitonin Urine Color Urine Clarity Urine pH Ur Specific [place] Urine Protein Urine Glucose (UA) Urine Ketones Urine Occult Blood Urine Nitrite Urine Bilirubin Urine Urobilinogen Ur Leukocyte Esterase Urine RBC Urine WBC Ur Squamous Epith Cells Urine Bacteria Urine Mucus COVID-19 (JAKE) Detected Blood Type Antibody Screen 05/04/20 05/04/20 05/04/20 15:14 15:14 17:10 WBC RBC Hgb Hct MCV MCH MCHC RDW Std Deviation RDW Coeff of Madalyn Plt Count MPV Immature Gran % (Auto) Neut % (Auto) Lymph % (Auto) [place] % (Auto) Eos % (Auto) Baso % (Auto) Absolute Neuts (auto) Absolute Lymphs (auto) Nucleated RBC % D-Dimer Quant (PE/DVT) Sodium Potassium Chloride Carbon Dioxide Anion Gap BUN Creatinine Estim Creat Clear Calc Est GFR (MDRD) Af Amer Est GFR (MDRD) Non-Af BUN/Creatinine Ratio Glucose Lactic Acid Calcium Magnesium 1.6 Ferritin 913 H Total Bilirubin AST ALT Alkaline Phosphatase Lactate Dehydrogenase 303 H C-React Prot Ext Range 72.60 H B-Natriuretic Peptide Total Protein Albumin Globulin Albumin/Globulin Ratio Procalcitonin 0.13 H Urine Color Yellow Urine Clarity Clear Urine pH 5.0 Ur Specific [place] 1.015 Urine Protein Negative Urine Glucose (UA) Normal Urine Ketones Negative Urine Occult Blood 10 H Urine Nitrite Negative Urine Bilirubin Negative Urine Urobilinogen Normal Ur Leukocyte Esterase Negative Urine RBC 0 SEEN Urine WBC 0 SEEN Ur Squamous Epith Cells 0 SEEN Urine Bacteria 0 SEEN Urine Mucus 0 SEEN COVID-19 (JAKE) Blood Type Antibody Screen 05/04/20 05/05/20 05/05/20 21:00 06:35 06:35 WBC 2.1 L RBC 3.15 L Hgb 10.4 L Hct 31.9 L MCV 101.3 H MCH 33.0 H MCHC 32.6 RDW Std Deviation 51.8 H RDW Coeff of Madalyn 14.0 Plt Count 259 MPV 10.2 Immature Gran % (Auto) 0.500 Neut % (Auto) 61.5 Lymph % (Auto) 31.7 [place] % (Auto) 6.3 Eos % (Auto) 0.0 Baso % (Auto) 0.0 Absolute Neuts (auto) 1.3 L Absolute Lymphs (auto) 0.65 L Nucleated RBC % 0 D-Dimer Quant (PE/DVT) Sodium 136 Potassium 3.9 Chloride 103 Carbon Dioxide 24.0 Anion Gap 9 BUN 41 H Creatinine 1.29 H Estim Creat Clear Calc 34.43 Est GFR (MDRD) Af Amer 52 L Est GFR (MDRD) Non-Af 43 L BUN/Creatinine Ratio 31.8 H Glucose 159 H Lactic Acid Calcium 8.7 Magnesium Ferritin 946 H Total Bilirubin 0.40 AST 43 H ALT 21 Alkaline Phosphatase 47 Lactate Dehydrogenase C-React Prot Ext Range 93.20 H B-Natriuretic Peptide Total Protein 6.6 Albumin 2.6 L Globulin 4.0 Albumin/Globulin Ratio 0.6 L Procalcitonin Urine Color Urine Clarity Urine pH Ur Specific [place] Urine Protein Urine Glucose (UA) Urine Ketones Urine Occult Blood Urine Nitrite Urine Bilirubin Urine Urobilinogen Ur Leukocyte Esterase Urine RBC Urine WBC Ur Squamous Epith Cells Urine Bacteria Urine Mucus COVID-19 (JAKE) Blood Type A POSITIVE Antibody Screen NEGATIVE 05/05/20 05/05/20 05/05/20 06:35 06:35 06:35 WBC RBC Hgb Hct MCV MCH MCHC RDW Std Deviation RDW Coeff of Madalyn Plt Count MPV Immature Gran % (Auto) Neut % (Auto) Lymph % (Auto) [place] % (Auto) Eos % (Auto) Baso % (Auto) Absolute Neuts (auto) Absolute Lymphs (auto) Nucleated RBC % D-Dimer Quant (PE/DVT) 2.45 H* Sodium Potassium Chloride Carbon Dioxide Anion Gap BUN Creatinine Estim Creat Clear Calc Est GFR (MDRD) Af Amer Est GFR (MDRD) Non-Af BUN/Creatinine Ratio Glucose Lactic Acid Calcium Magnesium Ferritin Total Bilirubin AST ALT Alkaline Phosphatase Lactate Dehydrogenase C-React Prot Ext Range B-Natriuretic Peptide 140.5 H Total Protein Albumin Globulin Albumin/Globulin Ratio Procalcitonin 0.14 H Urine Color Urine Clarity Urine pH Ur Specific [place] Urine Protein Urine Glucose (UA) Urine Ketones Urine Occult Blood Urine Nitrite Urine Bilirubin Urine Urobilinogen Ur Leukocyte Esterase Urine RBC Urine WBC Ur Squamous Epith Cells Urine Bacteria Urine Mucus COVID-19 (JAKE) Blood Type Antibody Screen - Other Studies Radiology: [] reviewed Other Studies: [] Route of nutrition/ use of supplements: [] Nutritional Intake: [] IV Site: [] Garcia Catheter: [] - Physical Exam General: Alert, Oriented x3, Cooperative, No apparent distress HEENT: Atraumatic, PERRLA, EOMI Neck: Supple, No Nodes Lungs: Diminished Cardiovascular: Regular rate, Regular Rhythm Abdomen: Soft, Non Tender, Non-Distended Extremities: No edema Skin: No rashes IV Site: Peripheral, without redness Musculoskeletal: No Tenderness to Palpation of Joints or Extremities Neurological: Cranial nerves II-XII grossly intact - Assessment/Plan Antibiotics: [] Assessment/Plan: [] Active and Suspected Problems Acute respiratory failure with hypoxia (Acute) COVID-19 (Acute) CKD (chronic kidney disease), stage III (Suspected) covid with hypoxia and NOELLE - on dex, eliquis. Will start remdesivir. Sx started 04/28. GFR better today. PCR covid (+). in quarantine, getting tested, asymptomatic. Spoke with her son. D-dimer was 2.4. Will follow, thank you
[2020-05-05 16:06] LABS: Bedside Glucose 240 mg/dL (70-110)
[2020-05-05] MEDS: APIXABAN 2.5 MG TABLET PO (19:59)
[2020-05-05] MEDS: Atorvastatin Calcium 10 MG Tablet PO (19:59)
[2020-05-05 22:35] LABS: Bedside Glucose 272 mg/dL (70-110)
[2020-05-06] VITALS (10 sets, daily range): BP systolic 131–165; BP diastolic 58–85; PULSE 57–76; RESP 18; TEMP 36.5–36.8; O2SAT 92–96
[2020-05-06] MEDS: Insulin Lispro 100 UNIT/ML INSULN.PEN SC ×4 (06:08→20:19)
[2020-05-06 06:12] LABS: Hematocrit 31.4 % (37-47); Hemoglobin 10.1 g/dL (12.0-15.0); Mean Corp Hgb Conc 32.2 g/dL (32-36); Mean Corpuscular Hgb 32.4 pg (27.0-32.0); Mean Corpuscular Volume 100.6 fL (81-99); Mean Platelet Vol. 10.5 fl (6.2-12.0); Platelet Count 251 K/mm3 (150-450); Red Blood Count 3.12 M/mm3 (4.2-5.4); White Blood Count 5.3 K/mm3 (4.4-11.0)
[2020-05-06 06:26] LABS: Bedside Glucose 212 mg/dL (70-110)
[2020-05-06 06:49] LABS: ALB/GLOB Ratio 0.6 RATIO (0.9-2.4); AST(SGOT) 37 U/L (15-37); Alanine Aminotransfer ALT/SGPT 20 U/L (13-56); Albumin, Serum 2.5 g/dL (3.2-5.0); Alkaline Phosphatase 44 U/L (45-117); Anion Gap 9 (5-15); BUN 52 mg/dL (7-18); BUN/Creat Ratio 36.9 RATIO (10-20); Calcium,Total 8.7 mg/dL (8.5-10.1); Chloride 101 mmol/L (98-107); Creatinine, Serum 1.41 mg/dL (0.55-1.02); EST Glomerular Filtration Rate 39 mL/min (>60); Est Glom Filt Rate - Afr Amer 47 mL/min (>60); Globulin 3.9 g/dL (2.2-4.2); Glucose 212 mg/dL (74-106); Potassium 3.7 mmol/L (3.5-5.1); Protein, Total 6.4 g/dL (6.4-8.2); Sodium Level 135 mmol/L (136-145)
[2020-05-06] MEDS: cloNIDine HCl 0.1 MG Tablet 0.3 MG PO (10:17)
[2020-05-06] MEDS: APIXABAN 2.5 MG TABLET PO ×2 (10:17→20:18)
[2020-05-06] MEDS: dexAMETHasone 4 MG Tablet 6 MG PO (10:17)
[2020-05-06] MEDS: Aspirin 81 MG TAB.CHEW PO (10:17)
[2020-05-06] MEDS: Losartan Potassium 50 MG Tablet PO (10:18)
[2020-05-06] MEDS: Carvedilol 25 MG Tablet PO ×2 (10:18→20:18)
[2020-05-06] MEDS: Furosemide 40 MG Tablet PO (10:18)
[2020-05-06] MEDS: hydroCHLOROthiazide 25 MG Tablet PO (10:18)
[2020-05-06] MEDS: Allopurinol 100 MG Tablet PO ×2 (10:18→20:19)
[2020-05-06] MEDS: Isosorbide Mononitrate 30 MG Tablet PO ×2 (10:18→20:18)
[2020-05-06] MEDS: Menthol/Lanolin/Calamine/Znox 113 GM Tube 1 APPLIC TOPICAL ×2 (10:19→20:18)
[2020-05-06] MEDS: 0.9% Saline Lock 10 ML Syringe IV (10:20)
--- NOTE | 2020-05-06 11:03 | PN.ID_ITS ---
Patient Problems: Active and Suspected Problems Acute respiratory failure with hypoxia (Acute) COVID-19 (Acute) CKD (chronic kidney disease), stage III (Suspected) Subjective: Feeling much better, no fever, breathing improved, appetite returned. - Physical Exam Vitals/I&O's: Vital Signs Temp Pulse Resp BP Pulse Ox 97.9 F 69 18 149/58 H 94 05/06/20 10:00 05/06/20 10:00 05/06/20 10:00 05/06/20 10:00 05/06/20 08:06 Oxygen Flow Rate (L/min) 2 Oxygen Delivery Method Nasal Cannula Weight: 90.3 kg Body Mass Index (BMI) 34.2 Intake and Output for Last 24 Hours 05/04/20 05/05/20 05/06/20 23:59 23:59 23:59 Intake Total 1598.33 / 1598.33 Output Total 1400 / 1650 850 / 850 Balance 198.33 / -51.67 -850 / -850 General: Alert, Cooperative, No apparent distress Lungs: Clear to auscultation, Diminished Cardiovascular: Regular rate, Regular Rhythm Abdomen: Soft, Non Tender, Non-Distended Skin: No rashes Microbiology Past 72 Hours 05/04/20 14:55 Mucosa - Nasopharyngeal Respiratory Panel (PCR) - Final 05/04/20 17:10 Urine, Random Streptococcus pneumoniae Antigen (M - Final 05/04/20 17:10 Urine, Random Legionella Antigen - Final Laboratory Results 05/05/20 06:35: B-Natriuretic Peptide 140.5 H 05/05/20 11:04: POC Glucose 194 H 05/05/20 15:48: POC Glucose 240 H 05/05/20 20:15: POC Glucose 272 H 05/06/20 05:26: WBC 5.3, RBC 3.12 L, Hgb 10.1 L, Hct 31.4 L, MCV 100.6 H, MCH 32.4 H, MCHC 32.2, RDW Std Deviation 51.0 H, RDW Coeff of Madalyn 14.0, Plt Count 251, MPV 10.5 05/06/20 05:26: Sodium 135 L, Potassium 3.7, Chloride 101, Carbon Dioxide 25.0, Anion Gap 9, BUN 52 H, Creatinine 1.41 H, Estim Creat Clear Calc 31.50, Est GFR (MDRD) Af Amer 47 L, Est GFR (MDRD) Non-Af 39 L, BUN/Creatinine Ratio 36.9 H, Glucose 212 H, Calcium 8.7, Total Bilirubin 0.40, AST 37, ALT 20, Alkaline Phosphatase 44 L, Total Protein 6.4, Albumin 2.5 L, Globulin 3.9, Albumin /Globulin Ratio 0.6 L 05/06/20 06:07: POC Glucose 212 H Current Medications Acetaminophen (Acetaminophen 325 Mg Tablet) 650 mg PO Q6H PRN PRN PRN Reason: Pain Score 1-10/Temp > 100.7 F Al Hydroxide/Mg Hydroxide (Mag Hydrox/Al Hydrox/Simeth 30 Ml Udc) 30 ml PO Q6H PRN PRN PRN Reason: Gastric Burning Albuterol Sulfate (Albuterol Sulfate 8 Gm Inhaler (60 Puffs)) 4 - 8 puff INHALATION Q4H PRN PRN PRN Reason: Dyspnea, wheezing Allopurinol (Allopurinol 100 Mg Tablet) 100 mg PO BID [facility] Last Admin: 05/06/20 10:18 Dose: 100 mg Documented by: Apixaban (Apixaban 2.5 Mg Tablet) 2.5 mg PO BID [facility] Last Admin: 05/06/20 10:17 Dose: 2.5 mg Documented by: Aspirin (Aspirin 81 Mg Tab.Chew) 81 mg PO DAILY [facility] Last Admin: 05/06/20 10:17 Dose: 81 mg Documented by: Atorvastatin Calcium (Atorvastatin Calcium 10 Mg Tablet) 10 mg PO QHS [facility] Last Admin: 05/05/20 19:59 Dose: 10 mg Documented by: Calamine/Phenol (Menthol/Lanolin/Calamine/Znox 113 Gm Tube) 1 applic TOPICAL BID [facility]; Protocol Last Admin: 05/06/20 10:19 Dose: 1 applic Documented by: Carvedilol (Carvedilol 25 Mg Tablet) 25 mg PO BID [facility] Last Admin: 05/06/20 10:18 Dose: 25 mg Documented by: Clonidine (Clonidine Hcl 0.1 Mg Tablet) 0.3 mg PO DAILY [facility] Last Admin: 05/06/20 10:17 Dose: 0.3 mg Documented by: Dexamethasone (Dexamethasone 4 Mg Tablet) 6 mg PO DAILY [facility] Stop: 05/13/20 10:01 Last Admin: 05/06/20 10:17 Dose: 6 mg Documented by: Dextrose (Dextrose 50%-Water 25 Gm/50 Ml Disp.Syrin) 0 gm IV X1 PRN; Protocol PRN Reason: Hypoglycemia Furosemide (Furosemide 40 Mg Tablet) 40 mg PO MOTUWETHFR [facility] Last Admin: 05/06/20 10:18 Dose: 40 mg Documented by: Glucagon (Glucagon 1 Mg/Ml Syringe) 1 mg IM .X1 PRN PRN Reason: Hypoglycemia Guaifenesin (Guaifenesin 10 Ml Udc (200mg/10ml)) 20 ml PO Q4H PRN PRN PRN Reason: COUGH Hydralazine HCl (Hydralazine 20 Mg/Ml Vial) 10 mg IV Q4H PRN PRN PRN Reason: SBP > 160 Hydrochlorothiazide (Hydrochlorothiazide 25 Mg Tablet) 25 mg PO DAILY [facility] Last Admin: 05/06/20 10:18 Dose: 25 mg Documented by: Remdesivir 100 mg/ Sodium (Chloride) 250 mls @ 125 mls/hr IV DAILY [facility]; Protocol Stop: 05/09/20 11:59 Last Admin: 05/06/20 10:20 Dose: 125 mls/hr Documented by: Insulin Human Lispro (Insulin Lispro 100 Unit/Ml Insuln.Pen) 0 unit SC ACHS [facility]; Protocol Last Admin: 05/06/20 06:08 Dose: 2 units Documented by: Isosorbide Mononitrate (Isosorbide Mononitrate 30 Mg Tablet) 30 mg PO BID [facility] Last Admin: 05/06/20 10:18 Dose: 30 mg Documented by: Losartan Potassium (Losartan Potassium 50 Mg Tablet) 50 mg PO DAILY [facility] Last Admin: 05/06/20 10:18 Dose: 50 mg Documented by: Melatonin (Melatonin 3 Mg Tablet) 3 mg PO QHS PRN PRN PRN Reason: INSOMNIA Morphine Sulfate (Morphine 2 Mg/Ml Syringe) 2 mg IV Q3H PRN PRN PRN Reason: Pain Score 6-10 Nitroglycerin (Nitroglycerin (Inpatient Use) 0.4 Mg Tab.Subl) 0.4 mg SUBLINGUAL Q5M PRN PRN Reason: CARDIAC/CHEST PAIN Ondansetron HCl (Ondansetron 4 Mg/2 Ml Vial) 4 mg IV Q8H PRN PRN PRN Reason: NAUSEA/VOMITING Oxycodone HCl (Oxycodone 5 Mg Tablet) 5 mg PO Q4H PRN PRN PRN Reason: Pain Score 4-5 Prochlorperazine Edisylate (Prochlorperazine 10 Mg/2 Ml Vial) 5 mg IV Q4H PRN PRN PRN Reason: Breakthrough nausea/vomiting Sodium Chloride (0.9% Saline Lock 10 Ml Syringe) 10 - 40 ml IV UD PRN PRN Reason: SALINE FLUSH Last Admin: 05/06/20 10:20 Dose: 10 ml Documented by: Throat Lozenges (Benzocaine/Menthol 1 Lozenge) 1 lozenge MUCOUS MEM Q2H PRN PRN PRN Reason: SORE THROAT Medical Necessity - Tobacco Use Smoking Status: Former smoker Tobacco Use: Cigarettes Route of nutrition/ use of supplements: [] Nutritional Intake: [] IV Site: [] Garcia Catheter: [] - Assessment/Plan Antibiotics: [] Assessment/Plan: [] Active and Suspected Problems Acute respiratory failure with hypoxia (Acute) COVID-19 (Acute) CKD (chronic kidney disease), stage III (Suspected) covid with hypoxia and NOELLE - on dex, eliquis. On remdesivir. Sx started 04/28. PCR covid (+). in quarantine, tested neg, asymptomatic. D-dimer was 2.4. Feeling much better. Plan will be for discharge home to complete 10 total days of dex and 2 more weeks of low dose eliquis. Quarantine apart from her for 20 days from start of symptoms. Will follow
[2020-05-06 11:56] LABS: Bedside Glucose 258 mg/dL (70-110)
--- NOTE | 2020-05-06 12:53 | PCM.PN.HOSP ---
Patient Problems: Active and Suspected Problems Acute respiratory failure with hypoxia (Acute) COVID-19 (Acute) CKD (chronic kidney disease), stage III (Suspected) Subjective: Patient seen and examined. She feels much better today. She feels her shortness of breath abdomen is improved markedly and she has a much better appetite. She is on dexamethasone and remdesivir. Review of symptoms otherwise negative. I did turn patient down to 1 L at time I was reviewing her and her saturation was 95% on room air. Vitals/I&O's: Vital Signs Temp Pulse Resp BP Pulse Ox 97.9 F 69 18 149/58 H 94 05/06/20 10:00 05/06/20 10:00 05/06/20 10:00 05/06/20 10:00 05/06/20 10:00 Oxygen Flow Rate (L/min) 2 Oxygen Delivery Method Nasal Cannula Weight: 199 lb 1.239 oz Body Mass Index (BMI) 34.2 Intake and Output for Last 24 Hours 05/04/20 05/05/20 05/06/20 23:59 23:59 23:59 Intake Total 1598.33 / 1598.33 250 / 250 Output Total 1400 / 1650 850 / 850 Balance 198.33 / -51.67 -600 / -600 General: Alert, Oriented x3, Cooperative HEENT: Atraumatic, PERRLA, EOMI, Normocephalic Neck: Supple, No JVD, Negative Carotid Bruits Lungs: Clear to auscultation, Normal air movement, Wheezes - on 1L of oxygen Cardiovascular: Regular rate, No murmurs Abdomen: Bowel Sounds Present, Soft, Non Tender Extremities: No clubbing, No cyanosis, No edema, Capillary Refill Less than 3 Seconds Skin: No rashes, No breakdown Musculoskeletal: No Tenderness to Palpation of Joints or Extremities Neurological: Cranial nerves II-XII grossly intact Psych/Mental Status: Normal Affect, Appropriate, Alert and oriented to time, place, person, mood and affect Microbiology Past 72 Hours 05/04/20 14:55 Mucosa - Nasopharyngeal Respiratory Panel (PCR) - Final 05/04/20 17:10 Urine, Random Streptococcus pneumoniae Antigen (M - Final 05/04/20 17:10 Urine, Random Legionella Antigen - Final Laboratory Results 05/05/20 15:48: POC Glucose 240 H 05/05/20 20:15: POC Glucose 272 H 12/17/20 05:26: WBC 5.3, RBC 3.12 L, Hgb 10.1 L, Hct 31.4 L, MCV 100.6 H, MCH 32.4 H, MCHC 32.2, RDW Std Deviation 51.0 H, RDW Coeff of Madalyn 14.0, Plt Count 251, MPV 10.5 05/06/20 05:26: Sodium 135 L, Potassium 3.7, Chloride 101, Carbon Dioxide 25.0, Anion Gap 9, BUN 52 H, Creatinine 1.41 H, Estim Creat Clear Calc 31.50, Est GFR (MDRD) Af Amer 47 L, Est GFR (MDRD) Non-Af 39 L, BUN/Creatinine Ratio 36.9 H, Glucose 212 H, Calcium 8.7, Total Bilirubin 0.40, AST 37, ALT 20, Alkaline Phosphatase 44 L, Total Protein 6.4, Albumin 2.5 L, Globulin 3.9, Albumin/Globulin Ratio 0.6 L 05/06/20 06:07: POC Glucose 212 H 05/06/20 11:32: POC Glucose 258 H Current Medications Acetaminophen (Acetaminophen 325 Mg Tablet) 650 mg PO Q6H PRN PRN PRN Reason: Pain Score 1-10/Temp > 100.7 F Al Hydroxide/Mg Hydroxide (Mag Hydrox/Al Hydrox/Simeth 30 Ml Udc) 30 ml PO Q6H PRN PRN PRN Reason: Gastric Burning Albuterol Sulfate (Albuterol Sulfate 8 Gm Inhaler (60 Puffs)) 4 - 8 puff INHALATION Q4H PRN PRN PRN Reason: Dyspnea, wheezing Allopurinol (Allopurinol 100 Mg Tablet) 100 mg PO BID [facility] Last Admin: 05/06/20 10:18 Dose: 100 mg Documented by: Apixaban (Apixaban 2.5 Mg Tablet) 2.5 mg PO BID [facility] Last Admin: 05/06/20 10:17 Dose: 2.5 mg Documented by: Aspirin (Aspirin 81 Mg Tab.Chew) 81 mg PO DAILY [facility] Last Admin: 05/06/20 10:17 Dose: 81 mg Documented by: Atorvastatin Calcium (Atorvastatin Calcium 10 Mg Tablet) 10 mg PO QHS [facility] Last Admin: 05/05/20 19:59 Dose: 10 mg Documented by: Calamine/Phenol (Menthol/Lanolin/Calamine/Znox 113 Gm Tube) 1 applic TOPICAL BID [facility]; Protocol Last Admin: 05/06/20 10:19 Dose: 1 applic Documented by: Carvedilol (Carvedilol 25 Mg Tablet) 25 mg PO BID [facility] Last Admin: 05/06/20 10:18 Dose: 25 mg Documented by: Clonidine (Clonidine Hcl 0.1 Mg Tablet) 0.3 mg PO DAILY [facility] Last Admin: 05/06/20 10:17 Dose: 0.3 mg Documented by: Dexamethasone (Dexamethasone 4 Mg Tablet) 6 mg PO DAILY [facility] Stop: 05/13/20 10:01 Last Admin: 05/06/20 10:17 Dose: 6 mg Documented by: Dextrose (Dextrose 50%-Water 25 Gm/50 Ml Disp.Syrin) 0 gm IV X1 PRN; Protocol PRN Reason: Hypoglycemia Furosemide (Furosemide 40 Mg Tablet) 40 mg PO MOTUWETHFR [facility] Last Admin: 05/06/20 10:18 Dose: 40 mg Documented by: Glucagon (Glucagon 1 Mg/Ml Syringe) 1 mg IM .X1 PRN PRN Reason: Hypoglycemia Guaifenesin (Guaifenesin 10 Ml Udc (200mg/10ml)) 20 ml PO Q4H PRN PRN PRN Reason: COUGH Hydralazine HCl (Hydralazine 20 Mg/Ml Vial) 10 mg IV Q4H PRN PRN PRN Reason: SBP > 160 Hydrochlorothiazide (Hydrochlorothiazide 25 Mg Tablet) 25 mg PO DAILY [facility] Last Admin: 05/06/20 10:18 Dose: 25 mg Documented by: Remdesivir 100 mg/ Sodium (Chloride) 250 mls @ 125 mls/hr IV DAILY [facility]; Protocol Stop: 05/09/20 11:59 Last Infusion: 05/06/20 12:20 Dose: Infused Documented by: Insulin Human Lispro (Insulin Lispro 100 Unit/Ml Insuln.Pen) 0 unit SC ACHS [facility]; Protocol Last Admin: 05/06/20 12:33 Dose: 3 units Documented by: Isosorbide Mononitrate (Isosorbide Mononitrate 30 Mg Tablet) 30 mg PO BID [facility] Last Admin: 05/06/20 10:18 Dose: 30 mg Documented by: Losartan Potassium (Losartan Potassium 50 Mg Tablet) 50 mg PO DAILY [facility] Last Admin: 05/06/20 10:18 Dose: 50 mg Documented by: Melatonin (Melatonin 3 Mg Tablet) 3 mg PO QHS PRN PRN PRN Reason: INSOMNIA Morphine Sulfate (Morphine 2 Mg/Ml Syringe) 2 mg IV Q3H PRN PRN PRN Reason: Pain Score 6-10 Nitroglycerin (Nitroglycerin (Inpatient Use) 0.4 Mg Tab.Subl) 0.4 mg SUBLINGUAL Q5M PRN PRN Reason: CARDIAC/CHEST PAIN Ondansetron HCl (Ondansetron 4 Mg/2 Ml Vial) 4 mg IV Q8H PRN PRN PRN Reason: NAUSEA/VOMITING Oxycodone HCl (Oxycodone 5 Mg Tablet) 5 mg PO Q4H PRN PRN PRN Reason: Pain Score 4-5 Prochlorperazine Edisylate (Prochlorperazine 10 Mg/2 Ml Vial) 5 mg IV Q4H PRN PRN PRN Reason: Breakthrough nausea/vomiting Sodium Chloride (0.9% Saline Lock 10 Ml Syringe) 10 - 40 ml IV UD PRN PRN Reason: SALINE FLUSH Last Admin: 05/06/20 10:20 Dose: 10 ml Documented by: Throat Lozenges (Benzocaine/Menthol 1 Lozenge) 1 lozenge MUCOUS MEM Q2H PRN PRN PRN Reason: SORE THROAT STROKE Vital Signs/Narrative: Vital Signs Temp Pulse Resp BP Pulse Ox 05/06/20 10:00 97.9 F 69 18 149/58 H 94 05/06/20 09:58 57 L Medical Necessity - Tobacco Use Smoking Status: Former smoker Tobacco Use: Cigarettes Assessment/Plan All Active Problems Acute respiratory failure with hypoxia (Acute) COVID-19 (Acute) #Acute hypoxic respiratory insufficiency due to COVID 19 infection Currently on 1 L of oxygen. Feels much better Titrate oxygen to maintain saturation above 90%. on dexamethasone. Started on IV remdesivir yesterday after kidney function improved CTA of the chest done yesterday was negative for PE. now on low dose eliquis o/a of elevated D dimer #COVID 19 infection As above # Hypertension on carvedilol, clonidine and HCTZ, as well as losartan. #Hyperlipidemia on statin #Chronic HF Not in exacerbation. On Lasix 40 mg daily. #CKD stage 3 Creatinine is 1.41. Will monitor #Type 2 diabetes mellitus:glipizide on hold. ISS. [place] GREY. DVT prophylaxis; eliqu Inpatient E&M: 62689 Subs Hosp L2
[2020-05-06 17:10] LABS: Bedside Glucose 275 mg/dL (70-110)
[2020-05-06] MEDS: MELATONIN 3 MG TABLET PO (20:18)
[2020-05-06] MEDS: Atorvastatin Calcium 10 MG Tablet PO (20:18)
[2020-05-06 21:46] LABS: Bedside Glucose 330 mg/dL (70-110)
[2020-05-07] VITALS (16 sets, daily range): BP systolic 108–144; BP diastolic 56–84; PULSE 53–70; RESP 18–20; TEMP 36.3–36.6; O2SAT 83–95
[2020-05-07] MEDS: Insulin Lispro 100 UNIT/ML INSULN.PEN SC ×4 (06:17→21:35)
[2020-05-07 06:30] LABS: Bedside Glucose 237 mg/dL (70-110)
[2020-05-07 07:12] LABS: Hematocrit 30.9 % (37-47); Hemoglobin 9.9 g/dL (12.0-15.0); Mean Corpuscular Hgb 32.4 pg (27.0-32.0); Mean Platelet Vol. 10.1 fl (6.2-12.0); Platelet Count 237 K/mm3 (150-450); Red Blood Count 3.06 M/mm3 (4.2-5.4)
[2020-05-07 07:52] LABS: ALB/GLOB Ratio 0.8 RATIO (0.9-2.4); AST(SGOT) 36 U/L (15-37); Alanine Aminotransfer ALT/SGPT 22 U/L (13-56); Albumin, Serum 2.6 g/dL (3.2-5.0); Alkaline Phosphatase 45 U/L (45-117); Anion Gap 9 (5-15); BUN 57 mg/dL (7-18); BUN/Creat Ratio 43.2 RATIO (10-20); Calcium,Total 8.7 mg/dL (8.5-10.1); Chloride 102 mmol/L (98-107); Creatinine, Serum 1.32 mg/dL (0.55-1.02); EST Glomerular Filtration Rate 42 mL/min (>60); Est Glom Filt Rate - Afr Amer 51 mL/min (>60); Estimated Creatinine Clearance 33.65 ml/min; Globulin 3.1 g/dL (2.2-4.2); Glucose 206 mg/dL (74-106); Potassium 3.9 mmol/L (3.5-5.1); Protein, Total 5.7 g/dL (6.4-8.2); Sodium Level 138 mmol/L (136-145)
[2020-05-07] MEDS: cloNIDine HCl 0.1 MG Tablet 0.3 MG PO (08:51)
[2020-05-07] MEDS: hydroCHLOROthiazide 25 MG Tablet PO (08:51)
[2020-05-07] MEDS: Losartan Potassium 50 MG Tablet PO (08:51)
[2020-05-07] MEDS: dexAMETHasone 4 MG Tablet 6 MG PO (08:52)
[2020-05-07] MEDS: Furosemide 40 MG Tablet PO (08:52)
[2020-05-07] MEDS: Isosorbide Mononitrate 30 MG Tablet PO ×2 (08:53→21:37)
[2020-05-07] MEDS: Allopurinol 100 MG Tablet PO ×2 (08:53→21:37)
[2020-05-07] MEDS: Carvedilol 25 MG Tablet PO ×2 (08:54→21:37)
[2020-05-07] MEDS: Aspirin 81 MG TAB.CHEW PO (08:54)
[2020-05-07] MEDS: APIXABAN 2.5 MG TABLET PO ×2 (08:54→21:37)
[2020-05-07] MEDS: Menthol/Lanolin/Calamine/Znox 113 GM Tube 1 APPLIC TOPICAL ×2 (10:42→21:38)
[2020-05-07] MEDS: 0.9% Saline Lock 10 ML Syringe IV (10:43)
--- NOTE | 2020-05-07 10:45 | PCM.PN.HOSP ---
Patient Problems: Active and Suspected Problems Acute respiratory failure with hypoxia (Acute) COVID-19 (Acute) CKD (chronic kidney disease), stage III (Suspected) Subjective: Patient seen and examined. She is feeling much better today, and has no complaints. She says it takes her a shorter time for her shortness sof breath to get better after she exerts herself. Review of systems otherwise negative. Vitals/I&O's: Vital Signs Temp Pulse Resp BP Pulse Ox 97.5 F L 66 18 131/64 H 95 05/07/20 08:46 05/07/20 08:46 05/07/20 08:46 05/07/20 08:46 05/07/20 08:46 Oxygen Flow Rate (L/min) 2 Oxygen Delivery Method Room Air Weight: 199 lb Body Mass Index (BMI) 34.2 Intake and Output for Last 24 Hours 05/05/20 05/06/20 05/07/20 23:59 23:59 23:59 Intake Total 1598.33 / 1598.33 250 / 250 Output Total 1400 / 1650 1125 / 1125 500 / 500 Balance 198.33 / -51.67 -875 / -875 -500 / -500 General: Alert, Oriented x3, Cooperative HEENT: Atraumatic, PERRLA, EOMI, Normocephalic Neck: Supple, No JVD, Negative Carotid Bruits Lungs: Clear to auscultation, Normal air movement, Wheezes - on 2L of oxygen Cardiovascular: Regular rate, No murmurs Abdomen: Bowel Sounds Present, Soft, Non Tender Extremities: No clubbing, No cyanosis, No edema, Capillary Refill Less than 3 Seconds Skin: No rashes, No breakdown Musculoskeletal: No Tenderness to Palpation of Joints or Extremities Neurological: Cranial nerves II-XII grossly intact Psych/Mental Status: Normal Affect, Appropriate, Alert and oriented to time, place, person, mood and affect Microbiology Past 72 Hours 05/04/20 14:55 Mucosa - Nasopharyngeal Respiratory Panel (PCR) - Final 05/04/20 17:10 Urine, Random Streptococcus pneumoniae Antigen (M - Final 05/04/20 17:10 Urine, Random Legionella Antigen - Final Laboratory Results 05/06/20 11:32: POC Glucose 258 H 05/06/20 16:59: POC Glucose 275 H 05/06/20 20:17: POC Glucose 330 H 05/07/20 06:08: WBC 6.0, RBC 3.06 L, Hgb 9.9 L, Hct 30.9 L, MCV 101.0 H, MCH 32.4 H, MCHC 32.0, RDW Std Deviation 52.0 H, RDW Coeff of Madalyn 14.0, Plt Count 237, MPV 10.1 05/07/20 06:08: Sodium 138, Potassium 3.9, Chloride 102, Carbon Dioxide 27.0, Anion Gap 9, BUN 57 H, Creatinine 1.32 H, Estim Creat Clear Calc 33.65, Est GFR (MDRD) Af Amer 51 L, Est GFR (MDRD) Non-Af 42 L, BUN/Creatinine Ratio 43.2 H, Glucose 206 H, Calcium 8.7, Total Bilirubin 0.30, AST 36, ALT 22, Alkaline Phosphatase 45, Total Protein 5.7 L, Albumin 2.6 L, Globulin 3.1, Albumin/Globulin Ratio 0.8 L 05/07/20 06:16: POC Glucose 237 H Current Medications Acetaminophen (Acetaminophen 325 Mg Tablet) 650 mg PO Q6H PRN PRN PRN Reason: Pain Score 1-10/Temp > 100.7 F Al Hydroxide/Mg Hydroxide (Mag Hydrox/Al Hydrox/Simeth 30 Ml Udc) 30 ml PO Q6H PRN PRN PRN Reason: Gastric Burning Albuterol Sulfate (Albuterol Sulfate 8 Gm Inhaler (60 Puffs)) 4 - 8 puff INHALATION Q4H PRN PRN PRN Reason: Dyspnea, wheezing Allopurinol (Allopurinol 100 Mg Tablet) 100 mg PO BID [facility] Last Admin: 05/07/20 08:53 Dose: 100 mg Documented by: Apixaban (Apixaban 2.5 Mg Tablet) 2.5 mg PO BID [facility] Last Admin: 05/07/20 08:54 Dose: 2.5 mg Documented by: Aspirin (Aspirin 81 Mg Tab.Chew) 81 mg PO DAILY [facility] Last Admin: 05/07/20 08:54 Dose: 81 mg Documented by: Atorvastatin Calcium (Atorvastatin Calcium 10 Mg Tablet) 10 mg PO QHS [facility] Last Admin: 05/06/20 20:18 Dose: 10 mg Documented by: Calamine/Phenol (Menthol/Lanolin/Calamine/Znox 113 Gm Tube) 1 applic TOPICAL BID [facility]; Protocol Last Admin: 05/06/20 20:18 Dose: 1 applic Documented by: Carvedilol (Carvedilol 25 Mg Tablet) 25 mg PO BID [facility] Last Admin: 05/07/20 08:54 Dose: 25 mg Documented by: Clonidine (Clonidine Hcl 0.1 Mg Tablet) 0.3 mg PO DAILY [facility] Last Admin: 05/07/20 08:51 Dose: 0.3 mg Documented by: Dexamethasone (Dexamethasone 4 Mg Tablet) 6 mg PO DAILY [facility] Stop: 05/13/20 10:01 Last Admin: 05/07/20 08:52 Dose: 6 mg Documented by: Dextrose (Dextrose 50%-Water 25 Gm/50 Ml Disp.Syrin) 0 gm IV X1 PRN; Protocol PRN Reason: Hypoglycemia Furosemide (Furosemide 40 Mg Tablet) 40 mg PO MOTUWETHFR [facility] Last Admin: 05/07/20 08:52 Dose: 40 mg Documented by: Glucagon (Glucagon 1 Mg/Ml Syringe) 1 mg IM .X1 PRN PRN Reason: Hypoglycemia Guaifenesin (Guaifenesin 10 Ml Udc (200mg/10ml)) 20 ml PO Q4H PRN PRN PRN Reason: COUGH Hydralazine HCl (Hydralazine 20 Mg/Ml Vial) 10 mg IV Q4H PRN PRN PRN Reason: SBP > 160 Hydrochlorothiazide (Hydrochlorothiazide 25 Mg Tablet) 25 mg PO DAILY [facility] Last Admin: 05/07/20 08:51 Dose: 25 mg Documented by: Remdesivir 100 mg/ Sodium (Chloride) 250 mls @ 125 mls/hr IV DAILY [facility]; Protocol Stop: 05/09/20 11:59 Last Infusion: 05/06/20 12:20 Dose: Infused Documented by: Insulin Human Lispro (Insulin Lispro 100 Unit/Ml Insuln.Pen) 0 unit SC ACHS [facility]; Protocol Last Admin: 05/07/20 06:17 Dose: 3 units Documented by: Isosorbide Mononitrate (Isosorbide Mononitrate 30 Mg Tablet) 30 mg PO BID [facility] Last Admin: 05/07/20 08:53 Dose: 30 mg Documented by: Losartan Potassium (Losartan Potassium 50 Mg Tablet) 50 mg PO DAILY [facility] Last Admin: 05/07/20 08:51 Dose: 50 mg Documented by: Melatonin (Melatonin 3 Mg Tablet) 3 mg PO QHS PRN PRN PRN Reason: INSOMNIA Last Admin: 05/06/20 20:18 Dose: 3 mg Documented by: Morphine Sulfate (Morphine 2 Mg/Ml Syringe) 2 mg IV Q3H PRN PRN PRN Reason: Pain Score 6-10 Nitroglycerin (Nitroglycerin (Inpatient Use) 0.4 Mg Tab.Subl) 0.4 mg SUBLINGUAL Q5M PRN PRN Reason: CARDIAC/CHEST PAIN Ondansetron HCl (Ondansetron 4 Mg/2 Ml Vial) 4 mg IV Q8H PRN PRN PRN Reason: NAUSEA/VOMITING Oxycodone HCl (Oxycodone 5 Mg Tablet) 5 mg PO Q4H PRN PRN PRN Reason: Pain Score 4-5 Prochlorperazine Edisylate (Prochlorperazine 10 Mg/2 Ml Vial) 5 mg IV Q4H PRN PRN PRN Reason: Breakthrough nausea/vomiting Sodium Chloride (0.9% Saline Lock 10 Ml Syringe) 10 - 40 ml IV UD PRN PRN Reason: SALINE FLUSH Last Admin: 05/06/20 10:20 Dose: 10 ml Documented by: Throat Lozenges (Benzocaine/Menthol 1 Lozenge) 1 lozenge MUCOUS MEM Q2H PRN PRN PRN Reason: SORE THROAT STROKE Vital Signs/Narrative: Vital Signs Temp Pulse Resp BP Pulse Ox 05/07/20 08:46 97.5 F L 66 18 131/64 H 95 05/07/20 07:21 61 05/07/20 07:10 95 Medical Necessity - Tobacco Use Smoking Status: Former smoker Tobacco Use: Cigarettes Assessment/Plan All Active Problems Acute respiratory failure with hypoxia (Acute) COVID-19 (Acute) #Acute hypoxic respiratory insufficiency due to COVID 19 infection Currently on 2 L of oxygen. Feels much better Titrate oxygen to maintain saturation above 90%. on dexamethasone and remdesivir now on low dose eliquis o/a of elevated D dimer #COVID 19 infection As above # Hypertension on carvedilol, clonidine and HCTZ, as well as losartan. #Hyperlipidemia on statin #Chronic HF Not in exacerbation. On Lasix 40 mg daily. #CKD stage 3 Creatinine is 1.32 today. Will monitor #Type 2 diabetes mellitus:glipizide on hold. ISS. Accuc[place] ACHS. DVT prophylaxis; eliquis Disposition: for likely discharge over the weekend. Inpatient E&M: 45232 Subs Hosp L2
--- NOTE | 2020-05-07 12:14 | CASEMGMT ---
RN KELSEY Note: attempted x 2 to contact patient via phone. She is not answering. Asked nurse to have phone by her bedside. DC PLAN: home. CM would like to speak with pt re: oxygen choices and home health care. Polo LINARES RN ACM
[2020-05-07 15:20] LABS: Bedside Glucose 286 mg/dL (70-110)
--- NOTE | 2020-05-07 15:58 | PCM.PN.ID ---
Patient Problems: Active and Suspected Problems Acute respiratory failure with hypoxia (Acute) COVID-19 (Acute) CKD (chronic kidney disease), stage III (Suspected) Subjective: Feeling better, breathing improved, no n/v/d. - Physical Exam Vitals/I&O's: Vital Signs Temp Pulse Resp BP Pulse Ox 97.7 F L 64 20 H 108/56 L 92 05/07/20 14:25 05/07/20 15:47 05/07/20 14:25 05/07/20 14:25 05/07/20 14:25 Oxygen Flow Rate (L/min) 2 Oxygen Delivery Method Nasal Cannula Weight: 90.265 kg Body Mass Index (BMI) 34.2 Intake and Output for Last 24 Hours 05/05/20 05/06/20 05/07/20 23:59 23:59 23:59 Intake Total 1598.33 / 1598.33 250 / 250 250 / 250 Output Total 1400 / 1650 1125 / 1125 900 / 900 Balance 198.33 / -51.67 -875 / -875 -650 / -650 General: Alert, Cooperative, No apparent distress Lungs: Clear to auscultation, Diminished Cardiovascular: Regular rate, Regular Rhythm Abdomen: Soft, Non Tender, Non-Distended Skin: No rashes Microbiology Past 72 Hours 05/04/20 14:55 Mucosa - Nasopharyngeal Respiratory Panel (PCR) - Final 05/04/20 17:10 Urine, Random Streptococcus pneumoniae Antigen (M - Final 05/04/20 17:10 Urine, Random Legionella Antigen - Final Laboratory Results 05/06/20 16:59: POC Glucose 275 H 05/06/20 20:17: POC Glucose 330 H 05/07/20 06:08: WBC 6.0, RBC 3.06 L, Hgb 9.9 L, Hct 30.9 L, MCV 101.0 H, MCH 32.4 H, MCHC 32.0, RDW Std Deviation 52.0 H, RDW Coeff of Madalyn 14.0, Plt Count 237, MPV 10.1 05/07/20 06:08: Sodium 138, Potassium 3.9, Chloride 102, Carbon Dioxide 27.0, Anion Gap 9, BUN 57 H, Creatinine 1.32 H, Estim Creat Clear Calc 33.65, Est GFR (MDRD) Af Amer 51 L, Est GFR (MDRD) Non-Af 42 L, BUN/Creatinine Ratio 43.2 H, Glucose 206 H, Calcium 8.7, Total Bilirubin 0.30, AST 36, ALT 22, Alkaline Phosphatase 45, Total Protein 5.7 L, Albumin 2.6 L, Globulin 3.1, Albumin/Globulin Ratio 0.8 L 05/07/20 06:16: POC Glucose 237 H 05/07/20 12:02: POC Glucose 286 H Current Medications Acetaminophen (Acetaminophen 325 Mg Tablet) 650 mg PO Q6H PRN PRN PRN Reason: Pain Score 1-10/Temp > 100.7 F Al Hydroxide/Mg Hydroxide (Mag Hydrox/Al Hydrox/Simeth 30 Ml Udc) 30 ml PO Q6H PRN PRN PRN Reason: Gastric Burning Albuterol Sulfate (Albuterol Sulfate 8 Gm Inhaler (60 Puffs)) 4 - 8 puff INHALATION Q4H PRN PRN PRN Reason: Dyspnea, wheezing Allopurinol (Allopurinol 100 Mg Tablet) 100 mg PO BID [facility] Last Admin: 05/07/20 08:53 Dose: 100 mg Documented by: Apixaban (Apixaban 2.5 Mg Tablet) 2.5 mg PO BID [facility] Last Admin: 05/07/20 08:54 Dose: 2.5 mg Documented by: Aspirin (Aspirin 81 Mg Tab.Chew) 81 mg PO DAILY [facility] Last Admin: 05/07/20 08:54 Dose: 81 mg Documented by: Atorvastatin Calcium (Atorvastatin Calcium 10 Mg Tablet) 10 mg PO QHS [facility] Last Admin: 05/06/20 20:18 Dose: 10 mg Documented by: Calamine/Phenol (Menthol/Lanolin/Calamine/Znox 113 Gm Tube) 1 applic TOPICAL BID [facility]; Protocol Last Admin: 05/07/20 10:42 Dose: 1 applic Documented by: Carvedilol (Carvedilol 25 Mg Tablet) 25 mg PO BID [facility] Last Admin: 05/07/20 08:54 Dose: 25 mg Documented by: Clonidine (Clonidine Hcl 0.1 Mg Tablet) 0.3 mg PO DAILY [facility] Last Admin: 05/07/20 08:51 Dose: 0.3 mg Documented by: Dexamethasone (Dexamethasone 4 Mg Tablet) 6 mg PO DAILY [facility] Stop: 05/13/20 10:01 Last Admin: 05/07/20 08:52 Dose: 6 mg Documented by: Dextrose (Dextrose 50%-Water 25 Gm/50 Ml Disp.Syrin) 0 gm IV X1 PRN; Protocol PRN Reason: Hypoglycemia Furosemide (Furosemide 40 Mg Tablet) 40 mg PO MOTUWETHFR [facility] Last Admin: 05/07/20 08:52 Dose: 40 mg Documented by: Glucagon (Glucagon 1 Mg/Ml Syringe) 1 mg IM .X1 PRN PRN Reason: Hypoglycemia Guaifenesin (Guaifenesin 10 Ml Udc (200mg/10ml)) 20 ml PO Q4H PRN PRN PRN Reason: COUGH Hydralazine HCl (Hydralazine 20 Mg/Ml Vial) 10 mg IV Q4H PRN PRN PRN Reason: SBP > 160 Hydrochlorothiazide (Hydrochlorothiazide 25 Mg Tablet) 25 mg PO DAILY [facility] Last Admin: 05/07/20 08:51 Dose: 25 mg Documented by: Remdesivir 100 mg/ Sodium (Chloride) 250 mls @ 125 mls/hr IV DAILY [facility]; Protocol Stop: 05/09/20 11:59 Last Infusion: 05/07/20 13:00 Dose: Infused Documented by: Insulin Human Lispro (Insulin Lispro 100 Unit/Ml Insuln.Pen) 0 unit SC ACHS [facility]; Protocol Last Admin: 05/07/20 12:04 Dose: 4 units Documented by: Isosorbide Mononitrate (Isosorbide Mononitrate 30 Mg Tablet) 30 mg PO BID [facility] Last Admin: 05/07/20 08:53 Dose: 30 mg Documented by: Losartan Potassium (Losartan Potassium 50 Mg Tablet) 50 mg PO DAILY [facility] Last Admin: 05/07/20 08:51 Dose: 50 mg Documented by: Melatonin (Melatonin 3 Mg Tablet) 3 mg PO QHS PRN PRN PRN Reason: INSOMNIA Last Admin: 05/06/20 20:18 Dose: 3 mg Documented by: Nitroglycerin (Nitroglycerin (Inpatient Use) 0.4 Mg Tab.Subl) 0.4 mg SUBLINGUAL Q5M PRN PRN Reason: CARDIAC/CHEST PAIN Ondansetron HCl (Ondansetron 4 Mg/2 Ml Vial) 4 mg IV Q8H PRN PRN PRN Reason: NAUSEA/VOMITING Oxycodone HCl (Oxycodone 5 Mg Tablet) 5 mg PO Q4H PRN PRN PRN Reason: Pain Score 4-5 Prochlorperazine Edisylate (Prochlorperazine 10 Mg/2 Ml Vial) 5 mg IV Q4H PRN PRN PRN Reason: Breakthrough nausea/vomiting Sodium Chloride (0.9% Saline Lock 10 Ml Syringe) 10 - 40 ml IV UD PRN PRN Reason: SALINE FLUSH Last Admin: 05/07/20 10:43 Dose: 10 ml Documented by: Throat Lozenges (Benzocaine/Menthol 1 Lozenge) 1 lozenge MUCOUS MEM Q2H PRN PRN PRN Reason: SORE THROAT Medical Necessity - Tobacco Use Smoking Status: Former smoker Tobacco Use: Cigarettes Route of nutrition/ use of supplements: [] Nutritional Intake: [] IV Site: [] Garcia Catheter: [] - Assessment/Plan Antibiotics: [] Assessment/Plan: [] Active and Suspected Problems Acute respiratory failure with hypoxia (Acute) COVID-19 (Acute) CKD (chronic kidney disease), stage III (Suspected) covid with hypoxia and NOELLE - on dex, eliquis. On remdesivir. Sx started 04/28. PCR covid (+). in quarantine, tested neg, asymptomatic. D-dimer was 2.4. Feeling much better. Plan will be for discharge home to complete 10 total days of dex and 2 more weeks of low dose eliquis. Quarantine apart from her for 20 days from start of symptoms. Will follow
[2020-05-07 16:30] LABS: Bedside Glucose 254 mg/dL (70-110)
[2020-05-07] MEDS: Atorvastatin Calcium 10 MG Tablet PO (21:37)
[2020-05-07 21:50] LABS: Bedside Glucose 333 mg/dL (70-110)
[2020-05-08] VITALS (11 sets, daily range): BP systolic 145–170; BP diastolic 74–81; PULSE 58–70; RESP 16–18; TEMP 36.4–36.7; O2SAT 82–94
[2020-05-08] MEDS: Insulin Lispro 100 UNIT/ML INSULN.PEN SC ×4 (06:20→21:59)
[2020-05-08 06:50] LABS: Bedside Glucose 226 mg/dL (70-110)
--- NOTE | 2020-05-08 07:40 | PN_ITS ---
Patient Problems: Active and Suspected Problems Acute respiratory failure with hypoxia (Acute) COVID-19 (Acute) CKD (chronic kidney disease), stage III (Suspected) Subjective: Patient seen and examined. She had an uneventful night and has no complaints this morning. Review of systems otherwise negative. He has remained hemodyn amically stable. Patient is up to 4 L of oxygen today. Labs are pending. She is in cumulative negative balance by 366 mls. Vitals/I&O's: Vital Signs Temp Pulse Resp BP Pulse Ox 97.5 F L 66 18 154/75 H 93 05/08/20 06:23 05/08/20 06:23 05/08/20 06:23 05/08/20 06:23 05/08/20 06:23 Oxygen Flow Rate (L/min) 4 Oxygen Delivery Method Nasal Cannula Weight: 200 lb 9.93 oz Body Mass Index (BMI) 34.2 Intake and Output for Last 24 Hours 05/06/20 05/07/20 05/08/20 23:59 23:59 23:59 Intake Total 250 / 250 730 / 730 480 / 480 Output Total 1125 / 1125 900 / 900 Balance -875 / -875 -170 / -170 480 / 480 General: Alert, Oriented x3, Cooperative HEENT: Atraumatic, PERRLA, EOMI, Normocephalic Neck: Supple, No JVD, Negative Carotid Bruits Lungs: Clear to auscultation, Normal air movement, on 4L of oxygen Cardiovascular: Regular rate, No murmurs Abdomen: Bowel Sounds Present, Soft, Non Tender Extremities: No clubbing, No cyanosis, No edema, Capillary Refill Less than 3 Seconds Skin: No rashes, No breakdown Musculoskeletal: No Tenderness to Palpation of Joints or Extremities Neurological: Cranial nerves II-XII grossly intact Psych/Mental Status: Normal Affect, Appropriate, Alert and oriented to time, place, person, mood and affect Microbiology Past 72 Hours 05/04/20 14:55 Mucosa - Nasopharyngeal Respiratory Panel (PCR) - Final Laboratory Results 05/07/20 06:08: Sodium 138, Potassium 3.9, Chloride 102, Carbon Dioxide 27.0, Anion Gap 9, BUN 57 H, Creatinine 1.32 H, Estim Creat Clear Calc 33.65, Est GFR (MDRD) Af Amer 51 L, Est GFR (MDRD) Non-Af 42 L, BUN/Creatinine Ratio 43.2 H, Glucose 206 H, Calcium 8.7, Total Bilirubin 0.30, AST 36, ALT 22, Alkaline Phosphatase 45, Total Protein 5.7 L, Albumin 2.6 L, Globulin 3.1, Albumin/Globulin Ratio 0.8 L 05/07/20 12:02: POC Glucose 286 H 05/07/20 16:12: POC Glucose 254 H 05/07/20 21:23: POC Glucose 333 H 05/08/20 06:18: POC Glucose 226 H Current Medications Acetaminophen (Acetaminophen 325 Mg Tablet) 650 mg PO Q6H PRN PRN PRN Reason: Pain Score 1-10/Temp > 100.7 F Al Hydroxide/Mg Hydroxide (Mag Hydrox/Al Hydrox/Simeth 30 Ml Udc) 30 ml PO Q6H PRN PRN PRN Reason: Gastric Burning Albuterol Sulfate (Albuterol Sulfate 8 Gm Inhaler (60 Puffs)) 4 - 8 puff INHALATION Q4H PRN PRN PRN Reason: Dyspnea, wheezing Allopurinol (Allopurinol 100 Mg Tablet) 100 mg PO BID [facility] Last Admin: 05/07/20 21:37 Dose: 100 mg Documented by: Apixaban (Apixaban 2.5 Mg Tablet) 2.5 mg PO BID [facility] Last Admin: 05/07/20 21:37 Dose: 2.5 mg Documented by: Aspirin (Aspirin 81 Mg Tab.Chew) 81 mg PO DAILY [facility] Last Admin: 05/07/20 08:54 Dose: 81 mg Documented by: Atorvastatin Calcium (Atorvastatin Calcium 10 Mg Tablet) 10 mg PO QHS [facility] Last Admin: 05/07/20 21:37 Dose: 10 mg Documented by: Calamine/Phenol (Menthol/Lanolin/Calamine/Znox 113 Gm Tube) 1 applic TOPICAL BID [facility]; Protocol Last Admin: 05/07/20 21:38 Dose: 1 applic Documented by: Carvedilol (Carvedilol 25 Mg Tablet) 25 mg PO BID [facility] Last Admin: 05/07/20 21:37 Dose: 25 mg Documented by: Clonidine (Clonidine Hcl 0.1 Mg Tablet) 0.3 mg PO DAILY [facility] Last Admin: 05/07/20 08:51 Dose: 0.3 mg Documented by: Dexamethasone (Dexamethasone 4 Mg Tablet) 6 mg PO DAILY [facility] Stop: 05/13/20 10:01 Last Admin: 05/07/20 08:52 Dose: 6 mg Documented by: Dextrose (Dextrose 50%-Water 25 Gm/50 Ml Disp.Syrin) 0 gm IV X1 PRN; Protocol PRN Reason: Hypoglycemia Furosemide (Furosemide 40 Mg Tablet) 40 mg PO MOTUWETHFR [facility] Last Admin: 05/07/20 08:52 Dose: 40 mg Documented by: Glucagon (Glucagon 1 Mg/Ml Syringe) 1 mg IM .X1 PRN PRN Reason: Hypoglycemia Guaifenesin (Guaifenesin 10 Ml Udc (200mg/10ml)) 20 ml PO Q4H PRN PRN PRN Reason: COUGH Hydralazine HCl (Hydralazine 20 Mg/Ml Vial) 10 mg IV Q4H PRN PRN PRN Reason: SBP > 160 Hydrochlorothiazide (Hydrochlorothiazide 25 Mg Tablet) 25 mg PO DAILY [facility] Last Admin: 05/07/20 08:51 Dose: 25 mg Documented by: Remdesivir 100 mg/ Sodium (Chloride) 250 mls @ 125 mls/hr IV DAILY [facility]; Protocol Stop: 05/09/20 11:59 Last Infusion: 05/07/20 13:00 Dose: Infused Documented by: Insulin Human Lispro (Insulin Lispro 100 Unit/Ml Insuln.Pen) [address] [facility]; Protocol Last Admin: 05/08/20 06:20 Dose: 2 units Documented by: Isosorbide Mononitrate (Isosorbide Mononitrate 30 Mg Tablet) 30 mg PO BID [facility] Last Admin: 05/07/20 21:37 Dose: 30 mg Documented by: Losartan Potassium (Losartan Potassium 50 Mg Tablet) 50 mg PO DAILY [facility] Last Admin: 05/07/20 08:51 Dose: 50 mg Documented by: Melatonin (Melatonin 3 Mg Tablet) 3 mg PO QHS PRN PRN PRN Reason: INSOMNIA Last Admin: 05/06/20 20:18 Dose: 3 mg Documented by: Nitroglycerin (Nitroglycerin (Inpatient Use) 0.4 Mg Tab.Subl) 0.4 mg SUBLINGUAL Q5M PRN PRN Reason: CARDIAC/CHEST PAIN Ondansetron HCl (Ondansetron 4 Mg/2 Ml Vial) 4 mg IV Q8H PRN PRN PRN Reason: NAUSEA/VOMITING Oxycodone HCl (Oxycodone 5 Mg Tablet) 5 mg PO Q4H PRN PRN PRN Reason: Pain Score 4-5 Prochlorperazine Edisylate (Prochlorperazine 10 Mg/2 Ml Vial) 5 mg IV Q4H PRN PRN PRN Reason: Breakthrough nausea/vomiting Sodium Chloride (0.9% Saline Lock 10 Ml Syringe) 10 - 40 ml IV UD PRN PRN Reason: SALINE FLUSH Last Admin: 05/07/20 10:43 Dose: 10 ml Documented by: Throat Lozenges (Benzocaine/Menthol 1 Lozenge) 1 lozenge MUCOUS MEM Q2H PRN PRN PRN Reason: SORE THROAT STROKE Vital Signs/Narrative: Vital Signs Temp Pulse Resp BP Pulse Ox 05/08/20 06:23 97.5 F L 66 18 154/75 H 93 05/08/20 05:47 58 L 05/08/20 03:45 97.8 F 63 18 160/81 H 94 05/08/20 03:44 18 88 Medical Necessity - Tobacco Use Smoking Status: Former smoker Tobacco Use: Cigarettes Assessment/Plan All Active Problems Acute respiratory failure with hypoxia (Acute) COVID-19 (Acute) #Acute hypoxic respiratory insufficiency due to COVID 19 infection * on 4L of oxygen today. * Titrate oxygen to maintain saturation above 90%. * on dexamethasone and remdesivir * on low dose eliquis for thromboprophylaxis due to elevated D dimer * * #COVID 19 infection * As above * # Hypertension * on carvedilol, clonidine and HCTZ, as well as losartan. * #Hyperlipidemia * on statin * #Chronic HF * Not in exacerbation. On Lasix 40 mg daily. * #CKD stage 3 * stable * #Type 2 diabetes mellitus:glipizide on hold. ISS. Accuchecks ACHS. DVT prophylaxis; eliquis Disposition: for discharge Sunday, when she completes course of remdesivir. Will be going to son or daughter's home Inpatient E&M: [id number] Subs Hosp L2
[2020-05-08 08:19] LABS: Hematocrit 31.4 % (37-47); Hemoglobin 10.1 g/dL (12.0-15.0); Mean Corp Hgb Conc 32.2 g/dL (32-36); Mean Corpuscular Hgb 32.4 pg (27.0-32.0); Mean Corpuscular Volume 100.6 fL (81-99); Mean Platelet Vol. 10.7 fl (6.2-12.0); Platelet Count 247 K/mm3 (150-450); RBC Distribution Width CV 13.8 % (11.6-14.6); RBC Distribution Width SD 50.4 fl (35.1-43.9); Red Blood Count 3.12 M/mm3 (4.2-5.4); White Blood Count 5.9 K/mm3 (4.4-11.0)
[2020-05-08] MEDS: Losartan Potassium 50 MG Tablet PO (08:45)
[2020-05-08] MEDS: Carvedilol 25 MG Tablet PO ×2 (08:45→21:58)
[2020-05-08] MEDS: APIXABAN 2.5 MG TABLET PO ×2 (08:45→21:58)
[2020-05-08] MEDS: hydroCHLOROthiazide 25 MG Tablet PO (08:45)
[2020-05-08] MEDS: Allopurinol 100 MG Tablet PO ×2 (08:45→21:58)
[2020-05-08] MEDS: Isosorbide Mononitrate 30 MG Tablet PO ×2 (08:45→21:58)
[2020-05-08] MEDS: Aspirin 81 MG TAB.CHEW PO (08:45)
[2020-05-08 08:46] LABS: ALB/GLOB Ratio 0.7 RATIO (0.9-2.4); AST(SGOT) 34 U/L (15-37); Alanine Aminotransfer ALT/SGPT 27 U/L (13-56); Albumin, Serum 2.6 g/dL (3.2-5.0); Alkaline Phosphatase 47 U/L (45-117); Anion Gap 9 (5-15); BUN 60 mg/dL (7-18); BUN/Creat Ratio 41.4 RATIO (10-20); Calcium,Total 8.8 mg/dL (8.5-10.1); Chloride 102 mmol/L (98-107); Creatinine, Serum 1.45 mg/dL (0.55-1.02); EST Glomerular Filtration Rate 38 mL/min (>60); Est Glom Filt Rate - Afr Amer 45 mL/min (>60); Estimated Creatinine Clearance 30.63 ml/min; Globulin 3.8 g/dL (2.2-4.2); Glucose 200 mg/dL (74-106); Potassium 3.3 mmol/L (3.5-5.1); Protein, Total 6.4 g/dL (6.4-8.2); Sodium Level 138 mmol/L (136-145)
[2020-05-08] MEDS: Menthol/Lanolin/Calamine/Znox 113 GM Tube 1 APPLIC TOPICAL ×2 (08:46→21:57)
[2020-05-08] MEDS: cloNIDine HCl 0.1 MG Tablet 0.3 MG PO (08:46)
[2020-05-08] MEDS: dexAMETHasone 4 MG Tablet 6 MG PO (08:46)
[2020-05-08 12:56] LABS: Bedside Glucose 279 mg/dL (70-110)
[2020-05-08 16:30] LABS: Bedside Glucose 338 mg/dL (70-110)
[2020-05-08] MEDS: Atorvastatin Calcium 10 MG Tablet PO (21:58)
[2020-05-08 22:20] LABS: Bedside Glucose 310 mg/dL (70-110)
[2020-05-09] VITALS (10 sets, daily range): BP systolic 108–168; BP diastolic 73–92; PULSE 57–82; RESP 18–20; TEMP 36.3–36.7; O2SAT 93–94
[2020-05-09] MEDS: Insulin Lispro 100 UNIT/ML INSULN.PEN SC ×4 (06:29→20:53)
[2020-05-09 06:54] LABS: Hematocrit 32.6 % (37-47); Hemoglobin 10.6 g/dL (12.0-15.0); Mean Corp Hgb Conc 32.5 g/dL (32-36); Mean Corpuscular Hgb 32.4 pg (27.0-32.0); Mean Corpuscular Volume 99.7 fL (81-99); Mean Platelet Vol. 10.6 fl (6.2-12.0); Platelet Count 249 K/mm3 (150-450); RBC Distribution Width CV 13.7 % (11.6-14.6); RBC Distribution Width SD 49.6 fl (35.1-43.9); Red Blood Count 3.27 M/mm3 (4.2-5.4); White Blood Count 6.6 K/mm3 (4.4-11.0)
[2020-05-09 07:01] LABS: Bedside Glucose 243 mg/dL (70-110)
[2020-05-09 07:25] LABS: ALB/GLOB Ratio 0.7 RATIO (0.9-2.4); AST(SGOT) 35 U/L (15-37); Alanine Aminotransfer ALT/SGPT 32 U/L (13-56); Albumin, Serum 2.7 g/dL (3.2-5.0); Alkaline Phosphatase 46 U/L (45-117); Anion Gap 10 (5-15); BUN 55 mg/dL (7-18); BUN/Creat Ratio 42.3 RATIO (10-20); Calcium,Total 8.9 mg/dL (8.5-10.1); Chloride 101 mmol/L (98-107); EST Glomerular Filtration Rate 43 mL/min (>60); Est Glom Filt Rate - Afr Amer 52 mL/min (>60); Estimated Creatinine Clearance 34.16 ml/min; Globulin 3.8 g/dL (2.2-4.2); Glucose 224 mg/dL (74-106); Potassium 3.4 mmol/L (3.5-5.1); Protein, Total 6.5 g/dL (6.4-8.2); Sodium Level 137 mmol/L (136-145)
--- NOTE | 2020-05-09 07:30 | PCM.PN.HOSP ---
Patient Problems: Active and Suspected Problems Acute respiratory failure with hypoxia (Acute) COVID-19 (Acute) CKD (chronic kidney disease), stage III (Suspected) Subjective: Patient seen and examined. She has no complaints and had no acute events overnight. She is currently on 3 L of oxygen. She has otherwise remained hemodynamically stable. Potassium was 3.4. Vitals/I&O's: Vital Signs Temp Pulse Resp BP Pulse Ox 97.5 F L 82 20 H 160/76 H 93 05/09/20 03:48 05/09/20 05:59 05/09/20 03:48 05/09/20 03:48 05/09/20 03:48 Oxygen Flow Rate (L/min) [ 4 AMBULATION with Oxygen] Oxygen Flow Rate (L/min) [ 0 AMBULATING on Room Air] Oxygen Flow Rate (L/min) [At 0 REST on Room Air] Oxygen Flow Rate (L/min) 3 Oxygen Delivery Method Nasal Cannula Weight: 200 lb 9.93 oz Body Mass Index (BMI) 34.2 Intake and Output for Last 24 Hours 05/07/20 05/08/20 05/09/20 23:59 23:59 23:59 Intake Total 730 / 730 1040 / 1140 100 / 100 Output Total 900 / 900 350 / 350 Balance -170 / -170 690 / 790 100 / 100 General: Alert, Oriented x3, Cooperative HEENT: Atraumatic, PERRLA, EOMI, Normocephalic Neck: Supple, No JVD, Negative Carotid Bruits Lungs: Clear to auscultation, Normal air movement, on 3L of oxygen Cardiovascular: Regular rate, No murmurs Abdomen: Bowel Sounds Present, Soft, Non Tender Extremities: No clubbing, No cyanosis, No edema, Capillary Refill Less than 3 Seconds Skin: No rashes, No breakdown Musculoskeletal: No Tenderness to Palpation of Joints or Extremities Neurological: Cranial nerves II-XII grossly intact Psych/Mental Status: Normal Affect, Appropriate, Alert and oriented to time, place, person, mood and affect Laboratory Results 05/08/20 07:36: WBC 5.9, RBC 3.12 L, Hgb 10.1 L, Hct 31.4 L, MCV 100.6 H, MCH 32.4 H, MCHC 32.2, RDW Std Deviation 50.4 H, RDW Coeff of Madalyn 13.8, Plt Count 247, MPV 10.7 05/08/20 07:36: Sodium 138, Potassium 3.3 L, Chloride 102, Carbon Dioxide 27.0, Anion Gap 9, BUN 60 H, Creatinine 1.45 H, Estim Creat Clear Calc 30.63, Est GFR (MDRD) Af Amer 45 L, Est GFR (MDRD) Non-Af 38 L, BUN/Creatinine Ratio 41.4 H, Glucose 200 H, Calcium 8.8, Total Bilirubin 0.40, AST 34, ALT 27, Alkaline Phosphatase 47, Total Protein 6.4, Albumin 2.6 L, Globulin 3.8, Albumin/Globulin Ratio 0.7 L 05/08/20 11:15: POC Glucose 279 H 05/08/20 16:25: POC Glucose 338 H 05/08/20 21:48: POC Glucose 310 H 05/09/20 06:28: WBC 6.6, RBC 3.27 L, Hgb 10.6 L, Hct 32.6 L, MCV 99.7 H, MCH 32.4 H, MCHC 32.5, RDW Std Deviation 49.6 H, RDW Coeff of Madalyn 13.7, Plt Count 249, MPV 10.6 05/09/20 06:28: Sodium 137, Potassium 3.4 L, Chloride 101, Carbon Dioxide 26.0, Anion Gap 10, BUN 55 H, Creatinine 1.30 H, Estim Creat Clear Calc 34.16, Est GFR (MDRD) Af Amer 52 L, Est GFR (MDRD) Non-Af 43 L, BUN/Creatinine Ratio 42.3 H, Glucose 224 H, Calcium 8.9, Total Bilirubin 0.60, AST 35, ALT 32, Alkaline Phosphatase 46, Total Protein 6.5, Albumin 2.7 L, Globulin 3.8, Albumin/Globulin Ratio 0.7 L 05/09/20 06:28: POC Glucose 243 H Current Medications Acetaminophen (Acetaminophen 325 Mg Tablet) 650 mg PO Q6H PRN PRN PRN Reason: Pain Score 1-10/Temp > 100.7 F Al Hydroxide/Mg Hydroxide (Mag Hydrox/Al Hydrox/Simeth 30 Ml Udc) 30 ml PO Q6H PRN PRN PRN Reason: Gastric Burning Albuterol Sulfate (Albuterol Sulfate 8 Gm Inhaler (60 Puffs)) 4 - 8 puff INHALATION Q4H PRN PRN PRN Reason: Dyspnea, wheezing Allopurinol (Allopurinol 100 Mg Tablet) 100 mg PO BID [facility] Last Admin: 05/08/20 21:58 Dose: 100 mg Documented by: Apixaban (Apixaban 2.5 Mg Tablet) 2.5 mg PO BID [facility] Last Admin: 05/08/20 21:58 Dose: 2.5 mg Documented by: Aspirin (Aspirin 81 Mg Tab.Chew) 81 mg PO DAILY [facility] Last Admin: 05/08/20 08:45 Dose: 81 mg Documented by: Atorvastatin Calcium (Atorvastatin Calcium 10 Mg Tablet) 10 mg PO QHS [facility] Last Admin: 05/08/20 21:58 Dose: 10 mg Documented by: Calamine/Phenol (Menthol/Lanolin/Calamine/Znox 113 Gm Tube) 1 applic TOPICAL BID [facility]; Protocol Last Admin: 05/08/20 21:57 Dose: 1 applic Documented by: Carvedilol (Carvedilol 25 Mg Tablet) 25 mg PO BID [facility] Last Admin: 05/08/20 21:58 Dose: 25 mg Documented by: Clonidine (Clonidine Hcl 0.1 Mg Tablet) 0.3 mg PO DAILY [facility] Last Admin: 05/08/20 08:46 Dose: 0.3 mg Documented by: Dexamethasone (Dexamethasone 4 Mg Tablet) 6 mg PO DAILY [facility] Stop: 05/13/20 10:01 Last Admin: 05/08/20 08:46 Dose: 6 mg Documented by: Dextrose (Dextrose 50%-Water 25 Gm/50 Ml Disp.Syrin) 0 gm IV X1 PRN; Protocol PRN Reason: Hypoglycemia Furosemide (Furosemide 40 Mg Tablet) 40 mg PO MOTUWETHFR [facility] Last Admin: 05/07/20 08:52 Dose: 40 mg Documented by: Glucagon (Glucagon 1 Mg/Ml Syringe) 1 mg IM .X1 PRN PRN Reason: Hypoglycemia Guaifenesin (Guaifenesin 10 Ml Udc (200mg/10ml)) 20 ml PO Q4H PRN PRN PRN Reason: COUGH Hydralazine HCl (Hydralazine 20 Mg/Ml Vial) 10 mg IV Q4H PRN PRN PRN Reason: SBP > 160 Hydrochlorothiazide (Hydrochlorothiazide 25 Mg Tablet) 25 mg PO DAILY [facility] Last Admin: 12/19/20 08:45 Dose: 25 mg Documented by: Remdesivir 100 mg/ Sodium (Chloride) 250 mls @ 125 mls/hr IV DAILY [facility]; Protocol Stop: 05/09/20 11:59 Last Infusion: 05/08/20 14:23 Dose: Infused Documented by: Insulin Human Lispro (Insulin Lispro 100 Unit/Ml Insuln.Pen) 0 unit SC ACHS [facility]; Protocol Last Admin: 05/09/20 06:29 Dose: 3 units Documented by: Isosorbide Mononitrate (Isosorbide Mononitrate 30 Mg Tablet) 30 mg PO BID [facility] Last Admin: 05/08/20 21:58 Dose: 30 mg Documented by: Losartan Potassium (Losartan Potassium 50 Mg Tablet) 50 mg PO DAILY [facility] Last Admin: 05/08/20 08:45 Dose: 50 mg Documented by: Melatonin (Melatonin 3 Mg Tablet) 3 mg PO QHS PRN PRN PRN Reason: INSOMNIA Last Admin: 05/06/20 20:18 Dose: 3 mg Documented by: Nitroglycerin (Nitroglycerin (Inpatient Use) 0.4 Mg Tab.Subl) 0.4 mg SUBLINGUAL Q5M PRN PRN Reason: CARDIAC/CHEST PAIN Ondansetron HCl (Ondansetron 4 Mg/2 Ml Vial) 4 mg IV Q8H PRN PRN PRN Reason: NAUSEA/VOMITING Oxycodone HCl (Oxycodone 5 Mg Tablet) 5 mg PO Q4H PRN PRN PRN Reason: Pain Score 4-5 Prochlorperazine Edisylate (Prochlorperazine 10 Mg/2 Ml Vial) 5 mg IV Q4H PRN PRN PRN Reason: Breakthrough nausea/vomiting Sodium Chloride (0.9% Saline Lock 10 Ml Syringe) 10 - 40 ml IV UD PRN PRN Reason: SALINE FLUSH Last Admin: 05/07/20 10:43 Dose: 10 ml Documented by: Throat Lozenges (Benzocaine/Menthol 1 Lozenge) 1 lozenge MUCOUS MEM Q2H PRN PRN PRN Reason: SORE THROAT STROKE Vital Signs/Narrative: Vital Signs Temp Pulse Resp BP Pulse Ox 05/09/20 05:59 82 05/09/20 03:48 97.5 F L 58 L 20 H 160/76 H 93 Medical Necessity - Tobacco Use Smoking Status: Former smoker Tobacco Use: Cigarettes Assessment/Plan All Active Problems Acute respiratory failure with hypoxia (Acute) COVID-19 (Acute) #Acute hypoxic respiratory insufficiency due to COVID 19 infection on 3L of oxygen today. Titrate oxygen to maintain saturation above 90%. on dexamethasone and remdesivir on low dose eliquis for thromboprophylaxis due to elevated D dimer Ambulatory pulse ox done yesterday showed that her oxygen saturation fell to 82% on room air with ambulation and at rest was 85% on room air and she required 4 L of oxygen to go up to 94%. #COVID 19 infection As above # Hypertension on carvedilol, clonidine and HCTZ, as well as losartan. BP has not been very well controlled. IV hydralazine as needed. #Hyperlipidemia on statin #Chronic HF Not in exacerbation. On Lasix 40 mg daily. #CKD stage 3 stable #Type 2 diabetes mellitus:glipizide on hold. ISS. Accuchecks ACHS. DVT prophylaxis; eliquis Disposition: for discharge Sunday, when she completes course of remdesivir. Will be going to son or daughter's home Inpatient E&M: [id number] Subs Hosp L2
[2020-05-09] MEDS: Menthol/Lanolin/Calamine/Znox 113 GM Tube 1 APPLIC TOPICAL ×2 (08:18→20:52)
[2020-05-09] MEDS: Losartan Potassium 50 MG Tablet PO (08:18)
[2020-05-09] MEDS: Aspirin 81 MG TAB.CHEW PO (08:18)
[2020-05-09] MEDS: Isosorbide Mononitrate 30 MG Tablet PO ×2 (08:19→20:53)
[2020-05-09] MEDS: hydroCHLOROthiazide 25 MG Tablet PO (08:19)
[2020-05-09] MEDS: Allopurinol 100 MG Tablet PO ×2 (08:19→20:53)
[2020-05-09] MEDS: dexAMETHasone 4 MG Tablet 6 MG PO (08:19)
[2020-05-09] MEDS: Carvedilol 25 MG Tablet PO ×2 (08:19→20:53)
[2020-05-09] MEDS: APIXABAN 2.5 MG TABLET PO ×2 (08:19→20:53)
[2020-05-09] MEDS: cloNIDine HCl 0.1 MG Tablet 0.3 MG PO (08:19)
[2020-05-09 12:36] LABS: Bedside Glucose 348 mg/dL (70-110)
[2020-05-09 17:21] LABS: Bedside Glucose 304 mg/dL (70-110)
[2020-05-09] MEDS: Atorvastatin Calcium 10 MG Tablet PO (20:53)
[2020-05-09 21:41] LABS: Bedside Glucose 284 mg/dL (70-110)
[2020-05-10] VITALS (12 sets, daily range): BP systolic 141–186; BP diastolic 54–104; PULSE 51–78; RESP 18–20; TEMP 36.3–36.7; O2SAT 3–94
[2020-05-10] MEDS: Insulin Lispro 100 UNIT/ML INSULN.PEN SC ×3 (06:37→15:44)
[2020-05-10 06:45] LABS: Bedside Glucose 217 mg/dL (70-110)
[2020-05-10 06:49] LABS: Hematocrit 33.5 % (37-47); Hemoglobin 10.9 g/dL (12.0-15.0); Mean Corp Hgb Conc 32.5 g/dL (32-36); Mean Corpuscular Hgb 32.2 pg (27.0-32.0); Mean Corpuscular Volume 99.1 fL (81-99); Mean Platelet Vol. 10.7 fl (6.2-12.0); Platelet Count 265 K/mm3 (150-450); RBC Distribution Width CV 13.7 % (11.6-14.6); RBC Distribution Width SD 49.5 fl (35.1-43.9); Red Blood Count 3.38 M/mm3 (4.2-5.4)
[2020-05-10 07:25] LABS: ALB/GLOB Ratio 0.8 RATIO (0.9-2.4); AST(SGOT) 30 U/L (15-37); Alanine Aminotransfer ALT/SGPT 34 U/L (13-56); Albumin, Serum 2.8 g/dL (3.2-5.0); Alkaline Phosphatase 48 U/L (45-117); Anion Gap 11 (5-15); BUN 50 mg/dL (7-18); BUN/Creat Ratio 43.5 RATIO (10-20); Calcium,Total 8.9 mg/dL (8.5-10.1); Chloride 100 mmol/L (98-107); Creatinine, Serum 1.15 mg/dL (0.55-1.02); EST Glomerular Filtration Rate 49 mL/min (>60); Est Glom Filt Rate - Afr Amer 59 mL/min (>60); Estimated Creatinine Clearance 38.62 ml/min; Globulin 3.4 g/dL (2.2-4.2); Glucose 201 mg/dL (74-106); Potassium 3.6 mmol/L (3.5-5.1); Protein, Total 6.2 g/dL (6.4-8.2); Sodium Level 138 mmol/L (136-145)
[2020-05-10] MEDS: dexAMETHasone 4 MG Tablet 6 MG PO (09:55)
[2020-05-10] MEDS: Furosemide 40 MG Tablet PO (09:55)
[2020-05-10] MEDS: Aspirin 81 MG TAB.CHEW PO (09:55)
[2020-05-10] MEDS: Losartan Potassium 50 MG Tablet PO (09:55)
[2020-05-10] MEDS: Carvedilol 25 MG Tablet PO (09:55)
[2020-05-10] MEDS: Allopurinol 100 MG Tablet PO (09:55)
[2020-05-10] MEDS: cloNIDine HCl 0.1 MG Tablet 0.3 MG PO (09:56)
[2020-05-10] MEDS: Isosorbide Mononitrate 30 MG Tablet PO (09:56)
[2020-05-10] MEDS: APIXABAN 2.5 MG TABLET PO (09:56)
[2020-05-10] MEDS: hydroCHLOROthiazide 25 MG Tablet PO (09:56)
[2020-05-10] MEDS: Menthol/Lanolin/Calamine/Znox 113 GM Tube 1 APPLIC TOPICAL (10:05)
[2020-05-10 11:51] LABS: Bedside Glucose 244 mg/dL (70-110)
--- NOTE | 2020-05-10 13:48 | CASEMGMT ---
Addendum entered by Anant Bose 05/10/20 14:37: Daughter is requesting dc instructions be reviewed with her prior to 4 pm (when she is planning to come excels[facility] picker patient). Note left for nurse. Polo ABRAMS Addendum entered by Anant Bose 05/10/20 14:35: Call to [place] [employer] x [phone]. If patient is dc'd after 5 pm, phone number to call is . -Call to daughtertracy and updated on dc, home oxygen set up. outbound call center representative phone number given to her to call when they arrive home. Original Note: RN KELSEY Note: Intro role of CM to patient via phone to room. Patient states she is going home and does not have a preference for oxygen company set up. Will set up with [employer]. -Call to [place] [facility]. Patient lives in [place]- portable tank to be delivered to hospital from [facility], and home delivery will be through [employer], [place]. -Script and documentation faxed to [employer]. -SonTom came to speak with CM. States his sister Tracy will be picking patient up and will stay with her until quarantine is over. Patient's will be out of the home since he is negative. Daughter knows she will need to be quarantined while caring for her mother. Discussed home health with son and he is declining. DIOGO COLE let him know if this is needed then he can contact PCP for order. No further dc needs. Polo ABRAMS
--- NOTE | 2020-05-10 14:29 | DCINST_ITS ---
- Discharge Diagnoses Current Active Problems: Current Active and Chronic Problems Acute respiratory failure with hypoxia (Acute) COVID-19 (Acute) HTN (hypertension) (Chronic) HLD (hyperlipidemia) (Chronic) Diabetes mellitus, type II (Chronic) CHF (congestive heart failure) (Chronic) Gout (Chronic) You will use the following diet at home:: Calorie/Carbohydrate Controlled (specify 1200, 1400, etc) - 1800 jocelyn Your food should be the consistency of: Regular Your liquids should be the consistency of: Regular/Thin Discharge Activity: Return to Normal Activity Weight Bearing Status: Full weight bearing Additional Instructions: Oxygen at 4 liters while ambulating, 3 liters while at rest Allergies/Adverse Reactions: Allergies cephalexin [From Keflex] Allergy (Verified 05/04/20 15:29) Hives amoxicillin [From Augmentin] Adverse Reaction (Verified 05/04/20 15:29) Diarrhea clavulanic acid [From Augmentin] Adverse Reaction (Verified 05/04/20 15:29) Diarrhea sulfamethoxazole [From Bactrim] Adverse Reaction (Verified 05/04/20 15:29) MY KIDNEY TOLD ME THAT WAS HARD ON THE KIDNEYS trimethoprim [From Bactrim] Adverse Reaction (Verified 05/04/20 15:29) MY KIDNEY TOLD ME THAT WAS HARD ON THE KIDNEYS Medications to take at Discharge Allopurinol 100 mg PO BID 05/04/20 Aspirin [Aspirin, Baby] 81 mg PO DAILY@0800 05/04/20 Carvedilol [Coreg] 25 mg PO BID 05/04/20 Clonidine HCl 0.3 mg PO DAILY 05/04/20 Cranberry Extract [Cranberry] 425 mg PO DAILY 05/04/20 Ergocalciferol (Vitamin D2) [Vitamin D2] 50,000 unit PO UD 05/04/20 Furosemide [Lasix] 40 mg PO MOTUWETHFR 05/04/20 Glipizide 5 mg PO BID 05/04/20 Hydrochlorothiazide [Hctz] 25 mg PO DAILY 05/04/20 Isosorbide Mononitrate [Imdur] 30 mg PO BID 05/04/20 [place]-3 Fatty Acids/Fish Oil [[place] 3 1,000 mg Softgel] 2 ea PO BID 05/04/20 Polyethylene Glycol 3350 [Miralax] 17 gm PO DAILY 05/04/20 Simvastatin [Zocor] 20 mg PO DAILY 05/04/20 Valsartan [Diovan] 160 mg PO DAILY 05/04/20 Apixaban [Eliquis] 2.5 mg PO BID #23 tab 05/10/20 Dexamethasone [Decadron] 6 mg PO DAILY #6 tab 05/10/20 The following prescriptions were given: Dexamethasone [Decadron] 6 mg PO DAILY #6 tab Transmission Status: Pending to [facility] Apixaban [Eliquis] 2.5 mg PO BID #23 tab Transmission Status: Pending to [facility] Primary Care Physician: Dionne Doctor,Out of [NON-STAFF] - Please follow up with your Primary Care Physician in: in 2 weeks Test Results: Test results from this visit will be discussed in further detail at your follow- up appointment, if applicable.
[2020-05-10 17:25] LABS: Bedside Glucose 286 mg/dL (70-110)
--- NOTE | 2020-05-11 14:22 | CASEMGMT ---
[facility] DC PHONE CALL DC DATE: 05/10/2020 DC Disposition: Home with oxygen through [facility] Diagnosis on Discharge: COVID 19 Intro role of CM to patient's daughter Gladys. She states pt is doing well, but still has notable drop in oxygen saturation with activity to mid 80's. States patient is above 90 with 3L @ rest. Encouraged her to increase oxygen to 4-5l prior to activity and have patient take deep breaths through her nose when back at rest prior to lowering oxygen and this should assist. Also recommended if shortness of breath worsens, or patient drops to low 80's with activity to update her PCP with her oxygen needs. -Pt has her medications and no questions. They are quarantining. -Information given to daughter on how dressings were changed in hospital. Daughter is assisting patient with this. -no other concerns and no care improvement suggestions. Polo GREENN RN ACM
--- NOTE | 2020-05-16 08:24 | PCM.DC.SUM ---
Discharge Date and Diagnosis - Problem List Patient Problems: Active and Suspected Problems Acute respiratory failure with hypoxia (Acute) COVID-19 (Acute) CKD (chronic kidney disease), stage III (Suspected) Date of Admission: 05/04/20 Date of Discharge: 05/10/20 - Primary Discharge Diagnosis Acute Problems: Active Problems #1 acute COVID-19 pneumonia #2 hypoxia secondary to #1 #3 essential hypertension #4 type 2 diabetes #5 chronic anemia-type unknown #6 chronic kidney disease stage III secondary to type 2 diabetes Acute respiratory failure was ruled out Suspected Problems: Suspected Problems CKD (chronic kidney disease), stage III (Suspected) - Secondary Discharge Diagnosis Chronic Problems: Chronic Problems HTN (hypertension) (Chronic) HLD (hyperlipidemia) (Chronic) Diabetes mellitus, type II (Chronic) CHF (congestive heart failure) (Chronic) Gout (Chronic) Hospital Course and Treatment Consultations 05/06/20 09:37 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 Cup in the emergency room included a chest [id number] minimal increased markings at the right lung base, 19 testing was positive for PCR. Patient required oxygen at 2 L/min to maintain her pulse ox, she was admitted to [place] [id number], given remdesivir and dexamethasone, she will also underwent a CT of the chest which showed evidence of COVID-19 pneumonia. Patient's oxygen was not able to be weaned off completely during her hospital stay, arranges were made for her have oxygen set up at home-her pulse ox at rest on room air was 83%, she had a pulse ox of 93% on 4 L while ambulating, and she had a pulse ox of 94% on 3 L at rest. She was expected to use her oxygen at her home and outside the home during activities of daily living. On 05/10/2020, patient was seen and examined: On examination she appeared in good health and spirits, she does not appear to be in any distress. Vital signs as documented. Skin warm and dry and without overt rashes. Neck without JVD, thyroid appears normal, trachea is midline, neck is supple. Lungs clear, normal air movement was noted. Heart exam notable for regular rhythm, normal sounds and absence of murmurs, rubs or gallops. Abdomen unremarkable and without evidence of organomegaly, masses, or abdominal aortic enlargement, bowel sounds are present in all 4 quadrants, no abdominal tenderness was noted. Extremities nonedematous, no cyanosis was noted, no clubbing was noted. Neuro: Cranial nerves II through XII are grossly intact, no focal motor deficits were noted, sensation to light touch and pinprick is intact, motor exam 5/5 throughout. Psych: Patient is alert and oriented x3, she does not appear anxious or depressed, she does not appear agitated. On 05/10/2020, patient was discharged home in stable condition. Patient Problems: Active and Suspected Problems Acute respiratory failure with hypoxia (Acute) COVID-19 (Acute) CKD (chronic kidney disease), stage III (Suspected) - Physical Exam Vitals/I&O's: Vital Signs Temp Pulse Resp BP Pulse Ox 98.1 F 73 18 142/76 H 94 05/10/20 17:41 05/10/20 17:41 05/10/20 17:41 05/10/20 17:41 05/10/20 17:41 Oxygen Flow Rate (L/min) [ 4 AMBULATION with Oxygen] Oxygen Flow Rate (L/min) [ 0 AMBULATING on Room Air] Oxygen Flow Rate (L/min) [At 0 REST on Room Air] Oxygen Flow Rate (L/min) 3 Oxygen Delivery Method Nasal Cannula Weight: 91.5 kg Body Mass Index (BMI) 34.2 Discharge Activity: Return to Normal Activity Weight Bearing Status: Full weight bearing Home Medications: Medications to take at Discharge Allopurinol 100 mg PO BID 05/04/20 Aspirin [Aspirin, Baby] 81 mg PO DAILY@0800 05/04/20 Carvedilol [Coreg] 25 mg PO BID 05/04/20 Clonidine HCl 0.3 mg PO DAILY 05/04/20 Cranberry Extract [Cranberry] 425 mg PO DAILY 05/04/20 Ergocalciferol (Vitamin D2) [Vitamin D2] 50,000 unit PO UD 05/04/20 Furosemide [Lasix] 40 mg PO MOTUWETHFR 05/04/20 Glipizide 5 mg PO BID 05/04/20 Hydrochlorothiazide [Hctz] 25 mg PO DAILY 05/04/20 Isosorbide Mononitrate [Imdur] 30 mg PO BID 05/04/20 [place]-3 Fatty Acids/Fish Oil [[place] 3 1,000 mg Softgel] 2 ea PO BID 05/04/20 Polyethylene Glycol 3350 [Miralax] 17 gm PO DAILY 05/04/20 Simvastatin [Zocor] 20 mg PO DAILY 05/04/20 Valsartan [Diovan] 160 mg PO DAILY 05/04/20 Apixaban [Eliquis] 2.5 mg PO BID #23 tab 05/10/20 Dexamethasone [Decadron] 6 mg PO DAILY #6 tab 05/10/20 Following Prescriptions Were Given to Patient: Dexamethasone [Decadron] 6 mg PO DAILY #6 tab Transmission Status: Received by [facility] Apixaban [Eliquis] 2.5 mg PO BID #23 tab Transmission Status: Received by [facility] Primary Care Physician: [facility] Doctor,Out of [NON-STAFF] - Please follow up with your Primary Care Physician in: in 2 weeks Disposition: Home Minutes spent on discharge:: 32 Patient Condition:: Stable Medical Necessity - Tobacco Use Smoking Status: Former smoker Tobacco Use: Cigarettes Meaningful Use Info Meaningful Use Diagnoses (Choose all that apply): None applicable Inpatient E&M: 39516 Disch Hosp
== END 2020-05-10 17:30 | disposition home or self-care (01) | DRG 177 ==
LOC: ED 15:39 → MS2 18:40
PROVIDERS: Internal Medicine Infectious Disease; Student in an Organized Health Care Education/Training Program; Admitting Provider Family Medicine; Emergency Provider Student in an Organized Health Care Education/Training Program; Visit Provider Internal Medicine
DX: U07.1 COVID-19 (principal); J12.89 Other viral pneumonia; I13.0 Hypertensive heart and chronic kidney disease with heart failure and stage 1 through stage 4 chronic kidney disease, or unspecified chronic kidney disease; N17.9 Acute kidney failure, unspecified; E86.0 Dehydration; I50.9 Heart failure, unspecified; N18.30 Chronic kidney disease, stage 3 unspecified; E78.5 Hyperlipidemia, unspecified; E11.22 Type 2 diabetes mellitus with diabetic chronic kidney disease; Z66 Do not resuscitate; M1A.9XX0 Chronic gout, unspecified, without tophus (tophi); D64.9 Anemia, unspecified; Z87.891 Personal history of nicotine dependence; Z79.01 Long term (current) use of anticoagulants; Z79.82 Long term (current) use of aspirin; Z79.899 Other long term (current) drug therapy; Z80.1 Family history of malignant neoplasm of trachea, bronchus and lung; Z82.49 Family history of ischemic heart disease and other diseases of the circulatory system; Z83.3 Family history of diabetes mellitus; Z85.828 Personal history of other malignant neoplasm of skin; Z90.710 Acquired absence of both cervix and uterus; Z96.651 Presence of right artificial knee joint; E66.9 Obesity, unspecified; Z68.33 Body mass index [BMI] 33.0-33.9, adult
CPT/HCPCS: 36415; 71045; 71275; 80053; 81001; 82728; 82962; 83605; 83615; 83735; 83880; 84145; 84484; 85025; 85027; 85379; 86140; 86850; 86900; 86901; 87449; 87633; 87635; 93005; 97110; 97116; 97162; 97166; 97530; 97535; 97802; 99285; J7030; J7040; J7050; Q9967; A4216; U0002